=== PATIENT | female | born 1965 | race Caucasian/White ===

== ENCOUNTER 2022-10-17 15:52 | Outpatient (OUT) | payer OTHER, SELFPAY ==
[2022-10-17 16:31] LABS: Basophils Absolute Auto 0.1 10^3/uL (0.0-0.1); Basophils Percent Auto 0.6 % (0.2-2.0); Eosinophils Absolute Auto 0.1 10^3/uL (0.0-0.7); Eosinophils Percent Auto 0.8 % (0.9-7.0); Hematocrit 40.1 % (36.0-48.0); Hemoglobin 13.6 g/dL (12.0-16.0); Immature Granulocytes Abs Auto 0.03 10^3/uL (0.00-0.03); Immature Granulocytes Pct Auto 0.4 % (0.0-0.5); Lymphocytes Absolute Auto 3.2 10^3/uL (1.2-3.8); Lymphocytes Percent Auto 38.5 % (20.5-60.0); Mean Corpuscular HGB Conc 33.9 g/dL (29.9-35.2); Mean Corpuscular Hemoglobin 27.6 pg (26.7-34.0); Mean Corpuscular Volume 81.5 fL (81.0-99.0); Mean Platelet Volume 10.3 fL (9.5-13.5); Monocytes Absolute Auto 0.7 10^3/uL (0.3-0.8); Monocytes Percent Auto 8.7 % (1.7-12.0); Neutrophils Absolute Auto 4.3 10^3/uL (1.4-6.5); Platelet Count 279 10^3/uL (150-450); Red Blood Count 4.92 10^6/uL (4.20-5.40); Red Cell Distribution Width 13.8 % (11.0-15.0); White Blood Count 8.4 10^3/uL (4.0-11.0)
[2022-10-17 16:58] LABS: Alanine Aminotransferase 63 U/L (14-59); Albumin Globulin Ratio 1.1; Alkaline Phosphatase 86 U/L (46-116); Anion Gap 12.8; Aspartate Amino Transferase 31 U/L (15-37); BUN Creatinine Ratio 29.6; Bilirubin Total 0.5 mg/dL (0.2-1.0); Calcium 9.1 mg/dL (8.5-10.1); Carbon Dioxide 25.2 mmol/L (21.0-32.0); Chloride 104 mmol/L (98-107); Chol HDL Ratio 3.6; Cholesterol 140 mg/dL (<=200); Estimated GFR (African America >60 (>=60); Estimated GFR (Non-African Ame >60 (>=60); Globulin 3.6 g/dL; Glucose 91 mg/dL (74-106); HDL Cholesterol 39 mg/dL (40-60); Sodium 138 mmol/L (136-145); Total Protein 7.6 g/dL (6.4-8.2); Triglycerides 87 mg/dL (<=150); VLDL CHOLESTEROL 17.4 mg/dL
== END 2022-10-17 15:53 | disposition home or self-care (01) ==
LOC: LAB 15:57
PROVIDERS: PCP Internal Medicine; Visit Provider Internal Medicine
DX: Z00.00 Encounter for general adult medical examination without abnormal findings (principal)
CPT/HCPCS: 36415; 80053; 80061; 84443; 85025

== ENCOUNTER 2022-11-09 15:01 | Outpatient (OUT) | payer OTHER, SELFPAY ==
--- NOTE | 2022-11-09 | XR_ITS ---
The [address] [address] Patient Name: ARIK VELARDE MRN: [id number] date: 1965 Sex: F Assigned Patient Location: [facility] Current Patient Location: Accession/Order Number: [id number] Exam Date: 11/09/2022 15:00 Report Date: 11/10/2022 10:08 At the request of: PONCE NORTH Procedure: XR ankle RT min 3V PROCEDURE: XR ankle RT min 3V DATE: 11/09/2022 2:00 PM CDT COMPARISONS: Plain radiographs 07/20/2022. MRI right ankle 08/02/2022 CLINICAL INDICATION: RIGHT ANKLE PAIN FINDINGS: There is no evidence of fractures or other acute osseous abnormalities. Corticated 5 mm ossification distal to the fibula consistent with old trauma or accessory ossicle, stable. Mild tibiotalar degenerative change. 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 These findings are better visualized on MRI than on plain radiographs and are stable. There is a small spur off the posterior inferior os calcis noted on lateral view. There is spurring off the posterior os calcis at the attachment of the Achilles as well. The ankle mortise is intact. XR/XR ankle RT min 3V IMPRESSION: Stable right ankle radiographs. Electronically authenticated by: MARÍA SLADE Date: 11/10/2022 10:08
== END 2022-11-09 15:02 | disposition home or self-care (01) ==
LOC: RAD 15:03
PROVIDERS: Visit Provider Podiatrist Foot & Ankle Surgery
DX: M25.571 Pain in right ankle and joints of right foot (principal)
CPT/HCPCS: 73610

== ENCOUNTER 2022-11-10 16:03 | Outpatient (OUT) | payer OTHER, SELFPAY ==
--- NOTE | 2022-11-10 16:40 | MM_ITS ---
Patient: ARIK VELARDE Exam Date: 11/10/2022 : 1965 Gender:F Ordering : DR Tomas Pfeiffer D.O. Admission #: [id number] Family : Non-Staff Physician Order #: [id number] CLICK HERE TO VIEW EXAM RADIOLOGY REPORT PROCEDURE: MM TOMOSYNTHESIS SCREENING BI COMPARISON: [facility] MAMM SCREEN 3D GERMAINE CAD, 10/13/2020. MG MAMM SCREEN 3D GERMAINE CAD, 10/14/2021. INDICATIONS: Screening mammogram Z12.31 Calculator Name NCI Breast Cancer Risk Assessment Tool 5 Year Breast Cancer Risk 0.80% Lifetime Breast Cancer Risk 5.20% Personal Breast Cancer No Personal Ovarian Cancer No Treatments None Family Cancers None LOCATION: [facility] BREAST COMPOSITION: Scattered areas fibroglandular density. FINDINGS: DIAGNOSTIC CATEGORY 2--BENIGN FINDING. NO CHANGE FROM COMPARISON. Scattered benign-appearing calcifications are present. Scattered benign-appearing lymph nodes are present. RIGHT BREAST: No significant suspicious finding. LEFT BREAST: No significant suspicious finding. RECOMMENDATIONS: ROUTINE MAMMOGRAM AND CLINICAL EVALUATION IN 12 MONTHS. PLEASE NOTE: A NORMAL MAMMOGRAM DOES NOT EXCLUDE THE POSSIBILITY OF BREAST CANCER. A CLINICALLY SUSPICIOUS PALPABLE LUMP SHOULD BE BIOPSIED. Dictated by: Leonid Pate MD on 11/11/2022 at 07:58 Approved by: Leonid Pate MD on 11/11/2022 at 08:00
== END 2022-11-10 16:04 | disposition home or self-care (01) ==
LOC: MAMMO 16:04
PROVIDERS: Visit Provider Internal Medicine
DX: Z12.31 Encounter for screening mammogram for malignant neoplasm of breast (principal)
CPT/HCPCS: 77063; 77067

== ENCOUNTER 2022-12-28 09:27 | Outpatient (OUT) | payer OTHER, SELFPAY ==
[2022-12-28 10:25] LABS: Thyroid Stimulating Hormone 0.009 uIU/mL (0.358-3.740)
== END 2022-12-28 09:28 | disposition home or self-care (01) ==
LOC: LAB 09:27
PROVIDERS: PCP Internal Medicine; Visit Provider Internal Medicine
DX: E06.3 Autoimmune thyroiditis (principal)
CPT/HCPCS: 36415; 84443

== ENCOUNTER 2023-03-02 09:17 | Outpatient (OUT) | payer OTHER, SELFPAY ==
[2023-03-02 13:57] LABS: Thyroid Stimulating Hormone 0.015 uIU/mL (0.358-3.740)
== END 2023-03-02 09:18 | disposition home or self-care (01) ==
LOC: LAB 09:18
PROVIDERS: PCP Internal Medicine; Visit Provider Internal Medicine
DX: E06.3 Autoimmune thyroiditis (principal)
CPT/HCPCS: 36415; 84443

== ENCOUNTER 2023-04-28 09:20 | Outpatient (OUT) | payer OTHER, SELFPAY ==
[2023-04-28 10:34] LABS: Thyroid Stimulating Hormone 0.105 uIU/mL (0.358-3.740)
== END 2023-04-28 09:21 | disposition home or self-care (01) ==
LOC: LAB 09:21
PROVIDERS: PCP Internal Medicine; Visit Provider Internal Medicine
DX: E06.3 Autoimmune thyroiditis (principal)
CPT/HCPCS: 36415; 84443

== ENCOUNTER 2023-10-24 10:37 | Outpatient (OUT) | payer OTHER, SELFPAY ==
--- OUTSIDE RECORDS SUMMARY | 2023-10-24 10:39 | XMS_ITS | CCD ---
Author Organization [facility] CliniSyfl Care Team Providers Care Rn Travel Name Role Phone Aleena Garnett Unavailable MG, DR MAIER Consulting Unavailable BALL, DR MORALES Primary Care Unavailable TIMMIS, DR MAIER Attending Unavailable TIMMIS, DR MAIER Admitting Unavailable JACKIE AMES Consulting Unavailable ENZO HAWKINS Consulting Unavailable AMRIT, DR SIN Srivastava Consulting Unavailable KENTRELL, DR MORALES Primary Care Unavailable PONCE NORTH Attending Unavailable PONCE NORTH Admitting Unavailable PONCE NORTH Consulting Unavailable ELÍAS GLEN Esparza Consulting Unavailable MORGOBALJINDER Gonzales Consulting Unavailable LORENZO TRISTAN Consulting Unavailable TIMMIS, DR MAIER Consulting Unavailable BALL, DR MORALES Primary Care Unavailable TIMMIS, DR MAIER Attending Unavailable TIMMIS, DR MAIER Admitting Unavailable TIMMIS, DR MAIER Consulting Unavailable BALL, DR MORALES Primary Care Unavailable TIMMIS, DR MAIER Attending Unavailable TIMMIS, DR MAIER Admitting Unavailable PONCE NORTH Consulting Unavailable KENTRELL, DR MORALES Primary Care Unavailable PONCE NORTH Attending Unavailable PONCE NORTH Admitting Unavailable ISABELL FRASER Consulting Unavailable KENTRELL, DR MORALES Primary Care Unavailable PONCE NORTH Attending Unavailable PONCE NORTH Admitting Unavailable BALL, DR MORALES Primary Care Unavailable PANTERA BILLINGS Attending Unavailable PANTERA BILLINGS Admitting Unavailable BALL, DR MORALES Primary Care Unavailable PANTERA BILLINGS Attending Unavailable PANTERA BILLINGS Admitting Unavailable PANTERA BILLINGS Consulting Unavailable KENTRELL, DR MORALES Primary Care Unavailable PANTERA BILLINGS Attending Unavailable PANTERA BILLINGS Admitting Unavailable ANIKA LOCKWOOD Consulting Unavailable AMRIT, DR SIN Srivastava Consulting Unavailable KENTRELL, DR MORALES Primary Care Unavailable PANTERA BILLINGS Attending Unavailable PANTERA BILLINGS Admitting Unavailable PANTERA BILLINGS Consulting Unavailable PONCE NORTH Consulting Unavailable BALL, DR MORALES Primary Care Unavailable PONCE NORTH Attending Unavailable PONCE NORTH Admitting Unavailable DOUG ACEVEDO Consulting Unavailable SABINE, DR ENZO Moreira Consulting Unavailable KENTRELL, DR MORALES Primary Care Unavailable PONCE NORTH Attending Unavailable PONCE NORTH Admitting Unavailable PONCE NORTH Consulting Unavailable KENTRELL, DR MORALES Consulting Unavailable KENTRELL, DR MORALES Primary Care Unavailable KENTRELL, DR MORALES Attending Unavailable KENTRELL, DR MORALES Admitting Unavailable SABINE, DR ENZO Moreira Consulting Unavailable Tomas Pfeiffer Unavailable Asaad, Imad Unavailable Tomas Pfeiffer Primary Care Unavailable Asaad, Imad Attending Unavailable Asaad, Imad Admitting Unavailable LUCIA HOLLIDAY Attending Unavailable Medications Current Medications Medication Drug Class(es) Dates Sig (Normalized) Sig (Original) HYDROcodone (15 sources) Opioid Agonist Start: 03-24-2022 Start: 03-24-2022 levothyroxine sodium 0.175 mg oral tablet (20 sources) l-Thyroxine Start: 10-23-2023 End: 10-23-2023 take 175 ug by mouth once daily Levothyroxine Active 175 MCG PO Daily 90 90 October 23, 2023 3:19pm Start: 07-24-2023 End: 10-23-2023 Levothyroxine Discontinued 0 .ROUTE .COMPLEX 102 July 24, 2023 10:06pm October 23, 2023 2:44pm TAKE 1& 1/2 TABLETS BY MOUTH ON SUNDAYS AND 1 TABLET ON ALL REMAINING DAYS Start: 12-29-2022 take 1 tablet by avril th once daily in the morning Levothyroxine Sodium 175 MCG 1 tablet in the morning on an empty stomach Orally Once a day Dec, Active Start: 12-15-2022 End: 07-24-2023 take 1 tablet by mouth once daily in the morning Levothyroxine Sodium 175 MCG 1 tablet in the morning on an empty stomach Orally Once a day Dec, Active Start: 10-18-2021 take 0.5 tablet by m outh once daily Levothyroxine Sodium 175MCG Levothyroxine Sodium 175MCG, 1 (one) Tablet Tablet daily, except take and extra 1/2 tab on Mon and Thurs # 102, 10/18/2021, Ref. x3. Active Oral daily, except take and extra 1/2 tab on Mon and for 0 Sep, Not-Taking/PRN Start: 10-18-2021 take 0.5 tablet by m outh once daily Levothyroxine Sodium 175MCG Levothyroxine Sodium 175MCG, 1 (one) Tablet Tablet daily, except take and extra 1/2 tab on Mon and Thurs # 102, 10/18/2021, Ref. x3. Active Oral daily, except take and extra 1/2 tab on Mon and for 0 Sep, Not-Taking Levothyroxine So dium 175 MCG 1 1/2 tabs on Monday, 1 tab all the remaining days Orally Once a day Active take 1 tablet by avril th once daily in the morning Levothyroxine Sodium 175 MCG 1 tablet in the morning on an empty stomach Orally daily Active lubiprostone (1 source) Chloride Channel Activator Start: 10-23-2023 take 1 capsule by mouth once daily Lubiprostone (Amitiza) 8 mcg capsule Active 8 MCG PO Daily October 23, 2023 12:00am meclizine hydrochloride 25 mg oral tablet (20 sources) Antiemetic Start: 10-23-2023 take 25 mg by mouth once daily Meclizine Active 25 MG PO Daily 90 October 23, 2023 12:00am Start: 10-23-2023 take 25 mg by mouth every six hours Meclizine Active 25 MG PO Every 6 hours October 23, 2023 12:00am Start: 10-17-2022 take 1 tablet by avril every six hours as needed for dizziness Meclizine HCl 25 MG 1 tablet as needed Orally every 6 hours as needed for dizziness for 30 days Sep, Active Start: 09-30-2020 take 1 tablet by avril every six hours as needed Meclizine HCl 25 MG 1 tablet as needed Oral every 6 hours as needed for 0 days Sep, Active phentermine hydrochloride 37.5 mg oral tablet (16 sources) Sympathomimetic Amine Anorectic Start: 10-23-2023 take 1 tablet by mouth once daily 30 minutes after breakfast Phentermine (Adipex-P) 37.5 mg tablet Active 37.5 MG PO Daily October 23, 2023 12:00am must administer 30 minutes before or 1-2 hours after breakfast Start: 02-14-2023 take 1 tablet by avril once daily before breakfast Adipex-P 37.5 MG 1 tablet before breakfast Orally Once a day for 30 days Rx #4 Jan, Active Start: 01-16-2023 [facility] Adipex-P 37.5 MG 1 tablet before breakfast Orally Once a day for 30 days Rx #4 Dec, Active Start: 12-14-2022 [facility] before breakfast Adipex-P 37.5 MG 1 tablet before breakfast Orally Once a day for 30 days 3rd Rx Nov, Active Start: 11-16-2022 [facility] before breakfast Adipex-P 37.5 MG 1 tablet before breakfast Orally Once a day for 30 days Oct, Active Start: 10-17-2022 take 1 tablet by [facility] once daily before breakfast Adipex-P 37.5 MG 1 tablet before breakfast Orally Once a day for 30 days Sep, Active polyethylene glycol [id number] [id number] mg / potassium chloride 2970 mg / sodium bicarbonate 6740 mg / sodium chloride 5860 mg / sodium sulfate 30228 mg powder for oral solution (14 sources) Osmotic Laxative Start: 11-01-2022 take 236 g by mouth once daily Golytely 236 GM as directed Orally once daily for 1 days Oct, Active Completed/Discontinued Medications Medication Drug Class(es) Dates Sig (Normalized) Sig (Original) Albuterol (15 sources) beta2-Adrenergic Agonist Start: 04-02-2021 take 1 dose by inhalation every six hours as needed Albuterol Sulfate (2.5 MG/3ML)0.083% Albuterol Sulfate (2.5 MG/3ML)0.083%, 1 (one) Vial Vial Vial every 6 hours PRN # 25, 04/02/2021, Ref. x1. Active Inhalation every 6 hours PRN for 0 Mar, Not-Taking/PRN Start: 04-02-2021 take 1 dose by inhal ation every six hours as needed Albuterol Sulfate (2.5 MG/3ML)0.083% Albuterol Sulfate (2.5 MG/3ML)0.083%, 1 (one) Vial Vial Vial every 6 hours PRN # 25, 04/02/2021, Ref. x1. Active Inhalation every 6 hours PRN for 0 Mar, Not-Taking amoxicillin 500 mg oral capsule (16 sources) Penicillin-class Antibacterial Start: 02-19-2022 take 1 capsule by mouth every eight hours Amoxicillin 500 MG 1 capsule Orally three times a day for 10 day(s) Jan, Not-Taking/PRN meloxicam 15 mg oral tablet (16 sources) Nonsteroidal Anti-inflammatory Drug Start: 10-23-2023 End: 10-23-2023 take 15 mg by mouth once daily Meloxicam Discontinued 15 MG PO Daily October 23, 2023 12:00am October 23, 2023 2:44pm take 1 tablet by mouth once elizabeth y Meloxicam 15 MG TAKE 1 TABLET BY MOUTH EVERY DAY Oral for 30 Days Active predniSONE 20 mg oral tablet (16 sources) Start: 02-19-2022 take 1 tablet by mouth every twelve hours predniSONE 20 MG 1 tablet Orally 2 times a day for 5 day(s) Jan, Not-Taking/PRN Vitamin D (16 sources) Vitamin D Not-Ta kiran/PRN Vitamin D Not-Ta kiran Vitamin D Active Problems Active Problems Problem Classification Problem Date Documented Date Episodic/Chronic Bacterial infection; unspecified site (1 source) Other specified bacterial agents as the cause of diseases classified elsewhere Episodic Immunizations and screening for infectious disease (17 sources) Contact with and (suspected) exposure to other viral communicable diseases; Translations: [Contact with and (suspected) exposure to other viral communicable diseases] Episodic Joint disorders and dislocations; trauma-related (20 sources) Internal derangement of left knee; Translations: [Unspecified internal derangement of left knee] Chronic Osteoarthritis (3 sources) Primary osteoarthritis, right ankle and foot; Translations: [Bilateral arthritis of ankle] Onset: 01-19-2022 10-22-2023 Chronic Other acquired deformities (1 source) Contracture, right ankle; Translations: [CONTRACTURE RIGHT ANKLE] Onset: 01-19-2022 Chronic Other congenital anomalies (1 source) Other specified congenital deformities of feet; Translations: [OTH SPEC CONGEN DEFORMITIES FEET] Onset: 01-19-2022 Chronic Other connective tissue disease (4 sources) Peroneal tendinitis, right leg; Translations: [PERONEAL TENDINITIS RIGHT LEG] Onset: 08-02-2022 Episodic Other ear and sense organ disorders (16 sources) Sensorineural hearing loss, bilateral; Translations: [Sensorineural hearing loss, bilateral] Chronic Other endocrine disorders (1 source) Polycystic ovarian syndrome; Translations: [POLYCYSTIC OVARIAN SYNDROME] Onset: 09-02-2021 Chronic Other non-traumatic joint disorders (5 sources) Other instability, right ankle; Translations: [OTHER INSTABILITY RIGHT ANKLE] Onset: 09-01-2021 Episodic Other non-traumatic joint disorders (5 sources) Pain in right ankle and joints of right foot; Translations: [PAIN IN RIGHT ANKLE] Onset: 01-19-2022 Episodic Other nutritional; endocrine; and metabolic disorders (5 sources) Other obesity due to excess calories; Translations: [OTHER OBESITY D/T EXCESS CALORIES] Onset: 01-19-2022 Chronic Other nutritional; endocrine; and metabolic disorders (3 sources) Body mass index (BMI) 30.0-30.9, adult; Translations: [BODY MASS INDEX BMI 30.0-30.9 ADULT] Onset: 01-19-2022 Chronic Other nutritional; endocrine; and metabolic disorders (15 sources) Obesity caused by energy imbalance; Translations: [Other obesity due to excess calories] Chronic Other nutritional; endocrine; and metabolic disorders (20 sources) Body mass index 30+ - obesity; Translations: [Body mass index (BMI) 32.0-32.9, adult] Chronic Other nutritional; endocrine; and metabolic disorders (1 source) Overweight; Translations: [Overweight] 10-23-2023 Episodic Other screening for suspected conditions (not mental disorders or infectious disease) (20 sources) Encounter for screening mammogram for malignant neoplasm of breast; Translations: [Patient encounter status] Onset: 10-14-2021 Episodic Other upper respiratory infections (2 sources) Streptococcal sore throat; Translations: [Strep throat] Episodic Residual codes; unclassified (1 source) Other specified postprocedural states; Translations: [OTH SPECIFIED POSTPROCEDURAL STATES] Onset: 05-17-2022 Episodic Spondylosis; intervertebral disc disorders; other back problems (1 source) Spondylosis without myelopathy or radiculopathy, lumbar region; Translations: [SPONDYLS W/O MYELO-/RADICULOP LUMB] Onset: 01-19-2022 Chronic Sprains and strains (10 sources) Strain of muscle(s) and tendon(s) of peroneal muscle group at lower leg level, right leg, sequela; Translations: [Sprain of other ligament of right ankle, sequela] Onset: 12-25-2021 Episodic Thyroid disorders (20 sources) Autoimmune thyroiditis; Translations: [Hypothyroidism, unspecified] Onset: 09-02-2021 Chronic Unclassified (1 source) CONTACT W/AND (SUSP) EXPOS COVID-19; Translations: [CONTACT W/AND (SUSP) EXPOS COVID-19] Onset: 01-03-2022 Unclassified (1 source) PERSONAL HISTORY OF COVID-19; Translations: [PERSONAL HISTORY OF COVID-19] Onset: 09-02-2021 Unclassified (1 source) Encounter for screening for malignant neoplasm of colon; Translations: [Encounter for screening for malignant neoplasm of colon] Onset: 12-16-2022 Past or Other Problems Problem Classification Problem Date Documented Da te Episodic/Chronic Fracture of lower limb (1 source) Other fracture of right lower leg, sequela; Translations: [OTHER FRACTURE RT LOWER LEG SEQUELA] Onset: 01-19-2022 Episodic Other aftercare (1 source) Other jail (current) drug therapy; Translations: [OTH BIBLE READER CURRENT DRUG THERAPY] Onset: 09-02-2021 Episodic Other connective tissue disease (1 source) Pain in right foot; Translations: [PAIN IN RIGHT FOOT] Onset: 01-19-2022 Episodic Other connective tissue disease (1 source) Plantar fascial fibromatosis; Translations: [PLANTAR FASCIAL FIBROMATOSIS] Onset: 01-19-2022 Episodic Other ear and sense organ disorders (1 source) Other specified disorders of ear, bilateral; Translations: [OTHER SPECIFIED DISORDERS EAR GERMAINE] Onset: 09-02-2021 Episodic Other ear and sense organ disorders (1 source) Otalgia, bilateral; Translations: [OTALGIA BILATERAL] Onset: 09-02-2021 Episodic Other non-traumatic joint disorders (1 source) Other specified joint disorders, right ankle and foot; Translations: [OTHER SPEC JOINT D/O RT ANKLE FOOT] Onset: 01-19-2022 Episodic Otitis media and related conditions (5 sources) Other specified disorders of Eustachian tube, bilateral; Translations: [OTH SPEC D/O EUST TUBE BILATERAL] Onset: 08-25-2021 Episodic Residual codes; unclassified (1 source) Acquired absence of both cervix and uterus; Translations: [ACQUIRED ABSENCE BOTH CERVIX AND UTERUS] Onset: 01-19-2022 Episodic Results Test Name Value Interpretation Reference Range Facility [facility] 12-16-2022 L Specimen: [id number] Received: 12/16/22 Status: EVELIO Vilchis Num: [id number] Spec Type: Surgical Subm Dr: Imelda Rodriguez MD Tissues: A Colon Biopsy (SIGMOID POLYP) B Colon Biopsy (RECTAL POLYP) Procedures: Clementina MEJIA/Terence L4/2 Age/ Patient Sex Location Account Attending Physician Lisa Campuzano 57/F [id number] Imelda Rodriguez MD SPEC NUM: [id number] RECD: 12/16/22 STATUS: EVELIO VILCHIS NUM: [id number] DANA: 12/16/22- [facility] DR: Imelda Rodriguez MD ENTERED: 12/16/[address] [facility] [address]: SPEC TYPE: Surgical DEPT: S ORDERED: HE/4, Gross/Micro L4/2 ORDERED: HE/4, Gross/Micro L4/2 Pathological Diagnosis A. Sigmoid polyp biopsy: - Small benign lymphoid pseudopolyp, also with mildly associated hyperplastic reactive glandular elongations without glandular dysplasia B. Rectal polyp biopsy: - Serrated hyperplastic polyp in both fragments Clinical Information Screening Gross Description A. Received in formalin labeled with the patient's name, date of and sigmoid polyp is one rodriguez tissue measuring 0.4 x 0.2 x 0.2 cm. Entirely submitted in one cassette labeled A1. B. Received in formalin labeled with the patient's name, date of and rectal polyp are two rodriguez tissues measuring 0.2 x 0.1 x 0.1 cm and 0.3 x 0.3 x 0.1 cm. Entirely submitted in one cassette labeled B1. Specimen: [id number] Received: 12/16/22 Status: CLAUDIAPatrick Vilchis Num: [id number] Spec Type: Surgical Subm Dr: Imelda Rodriguez MD Tissues: A Colon Biopsy (SIGMOID POLYP) B Colon Biopsy (RECTAL POLYP) Procedures: HE/4, Gross/Micro L4/2 Patient: Lisa Campuzano [id number] (Continued) Specimen: [id number] Received: 12/16/22 (Continued) Signed (signature on file) ChinPhyllis Chowdhury MD 12/19/221321 Specimen: [id number] Received: 12/16/22 Status: EVELIO Vilchis Num: [id number] Spec Type: Surgical Subm Dr: Imelda Rodriguez MD Tissues: A Colon Biopsy (SIGMOID POLYP) B Colon Biopsy (RECTAL POLYP) Procedures: RABIA/Clementina Santo/Terence L4/2 Patient: JustenLisa [id number] (Continued) Specimen: [id number] Received: 12/16/22 (Continued) Microscopic Description A. Two H E slides reviewed. The microscopic examination confirms the diagnosis. B. Two H E slides reviewed. The microscopic examination confirms the diagnosis. CPT Codes 41093i4 Specimen: [id number] Received: 12/16/22 Status: EVELIO Vilchis Num: [id number] Spec Type: Surgical Subm Dr: Imelda Rodriguez MD Tissues: A Colon Biopsy (SIGMOID POLYP) B Colon Biopsy (RECTAL POLYP) Procedures: HE/4, Gross/Micro L4/2 Patient: Lisa Campuzano [id number] (Continued) Signed (signature on file) Ayla Chowdhury MD 12/19/22 1322 [facility] MRI ANKLE RT WO CONon 2022 MRI ANKLE RT WO CON HISTORY: Right ankle pain and pain along the dorsum of the right foot. The patient has a history of prior surgery on the right ankle. Evaluate for peroneal tendinitis. Instability of the right ankle. MRI ANKLE RT WO CON: 08/02/2022 3:36 PM EDT COMPARISON: MRI right ankle 09/01/2021 and radiographs right ankle 07/20/2022. TECHNIQUE: Multiplanar, multisequence MRI images of the ankle were obtained without contrast. FINDINGS: LIGAMENTS: There are soft tissue anchors now seen in the anteroinferior aspect of the lateral malleolus and there are multiple small susceptibility artifacts seen in the soft tissues along the anterolateral aspect of this region from interval surgery. There again appears to be thickening and low signal intensity of the anterior talofibular ligament. There is thickening and low signal intensity on the T2 images involving the superior peroneal retinaculum. The calcaneofibular ligament, posterior talofibular ligament, and distal tibiofibular ligaments appear within normal limits. The deltoid ligament complex appears within normal limits. TENDONS: An accessory peroneus quartus muscle and tendon are again seen. There again appears to be mild tendinopathy of the retromalleolar and inframalleolar portion of the peroneus longus tendon with mild thickening of the tendon again seen. The longitudinal split tear previously seen of the peroneus brevis tendon in the inframalleolar region is no longer seen. The other tendons of the ankle appear within normal limits. SINUS TARSI AND TARSAL TUNNEL: Since the prior MRI there has been development of intermediate T1 and increased STIR signal intensity replacing the fat within the sinus tarsi. No space-occupying mass is seen in the tarsal tunnel. BONES AND JOINTS: The bone marrow signal intensity is age appropriate. No unstable osteochondral defect of the tibiotalar joint is identified. A small well-corticated ovoid 5 mm ossific focus is again seen along the inferior aspect of the lateral malleolus. There again appear to be mild degenerative changes of the tibiotalar joint with small marginal osteophytes. There is a similar appearance of a focal area of mild to moderate cartilage thinning involving the medial talar dome with mild underlying subchondral bone marrow edema in this region. There appear to be probable postsurgical changes from interval partial resection of the dorsolateral aspect of the calcaneus in the region of the sinus tarsi. PLANTAR FASCIA: There is a plantar calcaneal enthesophyte again seen. Approximately 2 cm distal to the attachment of the central band of the plantar fascia to the calcaneus there has been development of a focal area of severe fusiform thickening and intermediate signal intensity involving the central band of the plantar fascia. This measures 2.5 cm in length and the plantar fascia in this region is thickened to 8 mm. Approximately 2 cm distal to this region there is also a new focal area of moderate fusiform thickening and intermediate signal intensity of the central band of the plantar fascia at the level of the first tarsometatarsal joint. This measures partially 2 cm in length. SOFT TISSUES: No significant soft tissue swelling is seen. IMPRESSION: 1. Since the prior MRI of the right ankle of 09/01/2021 there appears to have been interval partial resection of the dorsolateral aspect of the anterior calcaneus in the region of the sinus tarsi and there has been development of abnormal signal intensity replacing the fat within the sinus tarsi which is probably secondary to postsurgical scarring or less likely a synovitis in this region. Correlation as to possible signs and symptoms of sinus tarsi syndrome is recommended. 2. There appear to be postsurgical changes from interval reconstruction surgery of the anterior talofibular ligament and interval surgery in the region of the superior peroneal retinaculum with probable scarring in the region of the superior peroneal retinaculum. No ligament injury is seen. 3. Probable interval repair of the previously seen longitudinal split tear of the inframalleolar portion of the peroneus brevis tendon. No recurrent tear of the tendon is seen. There again appears to be mild tendinopathy of the peroneus longus tendon. 4. Since the prior MRI there has been development of 2 separate areas of abnormal fusiform thickening and intermediate signal intensity involving the central band of the plantar fascia as described above. Differential diagnostic considerations for these findings primarily include areas of plantar fasciitis or strains of the plantar fascia or less likely plantar fibromas. 5. There again appear to be mild degenerative changes of the tibiotalar joint with a stable appearance of a remote moderate grade osteochondral defect of the medial talar dome which does not appear unstable. Electronically authenticated by: DOUG ACEVEDO Date: 2022-08-03 12: (more content not included)... Normal [facility] COVID/FLU RT-PCRon SARS-CoV-2 (COVID-19) RNA LISBETH+probe Ql (Unsp spec) Negative [employer] Other COVID/FLU RT-PCR Negative [facility] [employer] Other Quick Strepon 02-19-2022 S. pyogenes Org specific cx Ql (Throat) Negative [facility] Other Quick Strep [facility] Other POINT OF CARE GLUCOSEon 12-25 Glucose [Mass/Vol] 103 mg/dL Normal 74-106 [facility] Comment on above: Performed By: #### P OCGLUC ####[facility] [id number] [place] [id number] Chowdhury Glucose [Mass/Vol] 85 mg/dL Normal 74-106 [facility] Comment on above: Performed By: #### P OCGLUC ####[facility] [id number] [place] [address]Dr. Sade Chowdhury XR ANKLE RT 2Von 01-03-2022 XR ANKLE RT 2V EXAM: XR ANKLE RT 2V HISTORY: Pain COMPARISON: None. TECHNIQUE: 5 fluoroscopic images FINDINGS: 5 fluoroscopic images demonstrate a surgical metallic pointer projected over the hindfoot IMPRESSION: Fluoroscopic images of the hindfoot Electronically authenticated by: SIN MARCUS Date: 2022-01-03 16:06 Normal [facility] Covid-19 PCR (CVDTB)on SARS-CoV-2 (COVID-19) RNA LISBETH+probe Ql (Unsp spec) Not detected Normal NOT DETECTED [facility] Comment on above: Result Comment: This test is not yet approved or cleared by the [place] FDA. When there are no FDA-approved or cleared tests available, and other criteria are met, FDA can make tests available under an emergency access mechanism called an Emergency Use Authorization (EUA). The EUA for this test is supported by the [place] of Health and Human Service's (HHS's) declaration that circumstances exist to justify the emergency use of in vitro diagnostics for the detection and/or diagnosis of the virus that causes COVID-19. This EUA will remain in effect (meaning this test can be used) for the duration of the COVID-19 declaration justifying emergency of IVDs, unless it is terminated or revoked by FDA (after which the test may no longer be used). When diagnostic testing is negative, the possibility of a false negative should be considered in the context of a patient's recent exposures and the presence of clinical signs and symptoms consistent with SARS-CoV-2. Performed By: #### C VDTBH ####[facility] [address] [place], [place] [address]Dr. Sade Chowdhury CBC AUTO DIFFon 10-14-2021 BASO # 0.0 103/ul Normal 0.0-0.1 [facility] Comment on above: Performed By: #### C BC ####[facility] [address] [place], [place] [address]Dr. Sade Chowdhury Basophils/100 WBC (Bld) 0.5 % Normal 0.2-2.0 [facility] Comment on above: Performed By: #### C BC ####[facility] [address] [place], [place] [address]DrVilma Chowdhury EO # 0.0 103/ul Normal 0.0-0.7 [facility] Comment on above: Performed By: #### C BC ####[facility] [address] [place], [place] [address]Dr. Sade Chowdhury Eosinophils/100 WBC (Bld) 0.4 % Critically low 0.9-7.0 [facility] [place] Comment on above: Performed By: #### C BC ####[facility] [address] [address]Dr. Sade Chowdhury Erythrocyte distribution width (RBC) [Ratio] 13.6 % Normal 11.0-15.0 [facility] [place] Comment on above: Performed By: #### C BC ####[facility] [address]es[address] [place], [place] [address]Dr. Sade Chowdhury Hematocrit (Bld) [Volume fraction] 39.6 % Normal 36.0-48.0 [facility] Comment on above: Performed By: #### C BC ####[facility] [address] [place], [place] [address]Dr. Sade Chowdhury Hemoglobin (Bld) [Mass/Vol] 13.2 g/dL Normal 12.0-16.0 [facility] Comment on above: Performed By: #### C BC ####[facility] C[address] [place], [place] [address]Dr. Sade Trenton IG # 0.03 10e3/ul Normal 0.00-0.03 [facility] Comment on above: Performed By: #### C BC ####[facility] [address] [place], [place] [address]Dr. Sade Trenton IG % 0.4 % Normal 0.0-0.5 [facility] Comment on above: Performed By: #### C BC ####[facility] [address] [place], [place] [address]Dr. Sade Trenton LYMPH # 2.9 103/ul Normal 1.2-3.8 [facility] Comment on above: Performed By: #### C BC ####[facility] [address] [place], [place] [address]Dr. Jessicalex Chowdhury Lymphocytes/100 WBC (Bld) 39.6 % Normal 20.5-60.0 [facility] Comment on above: Performed By: #### C BC ####[facility] Crlevskrvk[address] [place], [place] [address]Dr. Sade Chowdhury MANUAL DIFF REQ NO Normal [facility] Comment on above: Performed By: #### C BC ####[facility] [address] [address]Dr. Sade Chowdhury MCH (RBC) [Entitic mass] 28.4 pg Normal 26.7-34.0 [facility] [place] Comment on above: Performed By: #### C BC ####[facility] [address] [address]Dr. Sade Chowdhury MCHC (RBC) [Mass/Vol] 33.3 g/dL Normal 29.9-35.2 [facility] [place] Comment on above: Performed By: #### C BC ####[facility] [address] [address]DrVilma Chowdhury MCV (RBC) [Entitic vol] 85.3 fL Normal 81.0-99.0 [facility] [place] Comment on above: Performed By: #### C BC ####[facility] R[address] [place], [place] [address]DrVilma Chowdhury MONO # 0.7 103/ul Normal 0.3-0.8 [facility] Comment on above: Performed By: #### C BC ####[facility] [address] [place], [place] [address]DrVilma Chowdhury Monocytes/100 WBC (Bld) 9.5 % Normal 1.7-12.0 [facility] Comment on above: Performed By: #### C BC ####[facility] [address] [place], [place] [address]DrVilma Chowdhury NEUT # 3.6 103/ul Normal 1.4-6.5 [facility] Comment on above: Performed By: #### C BC ####[facility] [address] [place], [place] [address]DrVilma Chowdhury Neutrophils/100 WBC (Bld) 49.6 % Normal 43.0-75.0 [facility] Comment on above: Performed By: #### C BC ####[facility] X[address] [place], [place] [address]DrVilma Chowdhury Platelet mean volume (Bld) [Entitic vol] 10.3 fL Normal 9.5-13.5 [facility] [place] Comment on above: Performed By: #### C BC ####[facility] [address] [place] [id number]. Jessicalex Chowdhury PLT 270 103/ul Normal 150-450 [facility] Comment on above: Performed By: #### C BC ####[facility] [address] [place] [id number]. Sade Chowdhury RBC 4.64 106/ul Normal 4.20-5.40 [facility] Comment on above: Performed By: #### C BC ####[facility] [address] [place] [id number]. Jessicalex Trenton WBC 7.3 103/ul Normal 4.0-11.0 [facility] Comment on above: Performed By: #### C BC ####[facility] [address] [address]Dr. Sade Chowdhury LIPID PROFILEon 10-14-2021 CHOL-HDL RATIO NORM SEE BELOW Normal [facility] [place] Comment on above: Result Comment: 3.3 - 4.4 LOW RISK 4.4 - 7.1 AVERAGE RISK 7.1 - 11.0 MODERATE RISK >11.0 HIGH RISK Performed By: #### T SH, LIPID, CMP #### [facility] [address] [place] [address] Dr. Sade Chowdhury Cholesterol [Mass/Vol] 150 mg/dL Normal <=200 [facility] Comment on above: Performed By: #### T SH, LIPID, CMP #### [facility] [address] [place] [address] Dr. Sade Chowdhury Cholesterol in HDL [Mass/Vol] 33 mg/dL Critically low 40-60 [facility] Comment on above: Performed By: #### T SH, LIPID, CMP #### [facility] [address] [place] [address] Dr. Sade Chowdhuyr Cholesterol in LDL [Mass/Vol] 98.4 mg/dL Normal [facility] Comment on above: Performed By: #### T SH, LIPID, CMP #### [facility] [address] [address] [address] Sade Chowdhury Cholesterol.total/ Cholesterol in HDL [Mass ratio] 4.5 {ratio} Normal [facility] Comment on above: Performed By: #### T SH, LIPID, CMP #### [facility] [address] [address] [address] Sade Chowdhury HDL NORMAL > or = 60 mg/dl - LOW CARDIOVASCULAR RISK <40 mg/dl - HIGH CARDIOVASCULAR RISK Normal [facility] [place] Comment on above: Performed By: #### T SH, LIPID, CMP #### [facility] [address] [address] [address] Sade Chowdhury LDL CALC NORMAL SEE BELOW Normal [facility] Comment on above: Result Comment: <100 mg/dl OPTIMAL 100 - 129 mg/dl NEAR OR ABOVE OPTIMAL 130 - 159 mg/dl BORDERLINE HIGH 160 - 189 mg/dl HIGH >190 mg/dl VERY HIGH Performed By: #### T SH, LIPID, CMP #### [facility] [address] [address] [address] Sade Chowdhury Triglyceride [Mass/Vol] 93 mg/dL Normal <=150 [facility] [place] Comment on above: Performed By: #### T SH, LIPID, CMP #### [facility] [address] [address] [address] Sade Chowdhury VLDL CALC 18.6 mg/dL Normal [facility] [place] Comment on above: Performed By: #### T SH, LIPID, CMP #### [facility] [address] [address] [address] Sade Chowdhury MG MAMM SCREEN 3D GERMAINE CADon 10-14-2021 MG MAMM SCREEN 3D GERMAINE CAD Patient: LISA CAMPUZANO Exam Date: 10/14/2021 : 1965 Gender:F Ordering : DR TOMAS PFEIFFER D.O. Admission #: [id number] Family : Order #: [id number] CLICK HERE TO VIEW EXAM RADIOLOGY REPORT PROCEDURE: MAMMOGRAM SCREENING 3D BILATERAL CAD COMPARISON: MG MAMM SCREEN 3D GERMAINE CAD, 10/13/2020. MG MAMM SCREEN GERMAINE W CAD, 10/10/2019. INDICATIONS: Screening mammography Calculator Name NCI Breast Cancer Risk Assessment Tool 5 Year Breast Cancer Risk 0.80% Lifetime Breast Cancer Risk 5.30% Personal Breast Cancer No Personal Ovarian Cancer No Treatments None Family Cancers None LOCATION: [facility] BREAST COMPOSITION: Scattered areas fibroglandular density. FINDINGS: DIAGNOSTIC CATEGORY 2--BENIGN FINDING: RIGHT BREAST: No significant suspicious finding. Scattered benign-appearing calcifications are present. No significant change has occurred. LEFT BREAST: No significant suspicious finding. Scattered benign-appearing calcifications are present. No significant change has occurred. RECOMMENDATIONS: ROUTINE MAMMOGRAM AND CLINICAL EVALUATION IN 12 MONTHS. PLEASE NOTE: A NORMAL MAMMOGRAM DOES NOT EXCLUDE THE POSSIBILITY OF BREAST CANCER. A CLINICALLY SUSPICIOUS PALPABLE LUMP SHOULD BE BIOPSIED. Dictated by: Enzo Leyva M.D. on 10/15/2021 at 11:40 Approved by: Enzo Leyva M.D. on 10/15/2021 at 11:47 Normal [facility] PROF 14(COMP METB)on 022 Albumin [Mass/Vol] 3.5 g/dL Normal 3.4-5.0 [facility] Comment on above: Performed By: #### T SH, LIPID, CMP #### [facility] [address] [place] [address] Dr. Sade Chowdhury Albumin/Globulin [Mass ratio] 1.0 {ratio} Normal [facility] Comment on above: Performed By: #### T SH, LIPID, CMP #### [facility] [address] [place] [address] Dr. Sade Chowdhury ALP [Catalytic activity/Vol] 90 U/L Normal 46-116 [facility] Comment on above: Performed By: #### T SH, LIPID, CMP #### [facility] [address] [address] [address] Sade Chowdhury ALT [Catalytic activity/Vol] 45 U/L Normal 14-59 [facility] Comment on above: Performed By: #### T SH, LIPID, CMP #### [facility] [address] [place] [address] Dr. Sade Chowdhury Anion gap [Moles/Vol] 13.6 mmol/L Normal [facility] Comment on above: Performed By: #### T SH, LIPID, CMP #### [facility] [address] [address] [address] Sade Chowdhury AST [Catalytic activity/Vol] 26 U/L Normal 15-37 [facility] Comment on above: Performed By: #### T SH, LIPID, CMP #### [facility] [address] [address] [address] Sade Chowdhury Bilirubin [Mass/Vol] 0.3 mg/dL Normal 0.2-1.0 [facility] Comment on above: Performed By: #### T SH, LIPID, CMP #### [facility] [address] [address] [address] Sade Chowdhury Calcium [Mass/Vol] 8.9 mg/dL Normal 8.5-10.1 [facility] Comment on above: Performed By: #### T SH, LIPID, CMP #### [facility] [address] [place] [address] Dr. Sade Chowdhury Chloride [Moles/Vol] 106 mmol/L Normal 98-107 [facility] Comment on above: Performed By: #### T SH, LIPID, CMP #### [facility] [address] [address] [address] Sade Chowdhury CO2 [Moles/Vol] 23.9 mmol/L Normal 21.0-32.0 [facility] Comment on above: Performed By: #### T SH, LIPID, CMP #### [facility] [address] [address] [address] Sade Chowdhury Creatinine [Mass/Vol] 0.67 mg/dL Normal 0.55-1.02 [facility] Comment on above: Performed By: #### T SH, LIPID, CMP #### [facility] [address] [address] [address] Sade Chowdhury EGFR-AF CZECH >60 Normal >=60 [facility] Comment on above: Performed By: #### T SH, LIPID, CMP #### [facility] [address] [place] [address] Dr. Sade Chowdhury EGFR-NON AF CZECH >60 Normal >=60 [facility] Comment on above: Performed By: #### T SH, LIPID, CMP #### [facility] [address] [address] [address] Sade Chowdhury Globulin (S) [Mass/Vol] 3.5 g/dL Normal [facility] Comment on above: Performed By: #### T SH, LIPID, CMP #### [facility] [address] [address] [address] Sade Chowdhury Glucose [Mass/Vol] 101 mg/dL Normal 74-106 [facility] Comment on above: Performed By: #### T SH, LIPID, CMP #### [facility] [address] [place] [address] Dr. Sade Chowdhury Potassium [Moles/Vol] 4.5 mmol/L Normal 3.5-5.1 [facility] Comment on above: Performed By: #### T JOVANY, LIPID, CMP #### [facility] [address] [place] [address] Dr. Sade Chowdhury Protein [Mass/Vol] 7.0 g/dL Normal 6.4-8.2 [facility] Comment on above: Performed By: #### T JOVANY, LIPID, CMP #### [facility] [address] [place] [address] Dr. Sade Chowdhury Sodium [Moles/Vol] 139 mmol/L Normal 136-145 [facility] Comment on above: Performed By: #### T JOVANY, LIPID, CMP #### [facility] [address] [place] [address] Dr. Sade Chowdhury Urea nitrogen [Mass/Vol] 19.0 mg/dL Critically high 7.0-18.0 [facility] Comment on above: Performed By: #### T SH, LIPID, CMP #### [facility] [address] [place] [address] Dr. Sade Chowdhury Urea nitrogen/Creatinin e [Mass ratio] 28.4 mg/mg Normal [facility] Comment on above: Performed By: #### T SH, LIPID, CMP #### [facility] [address] [place] [address] Dr. Sade Chowdhury TSHon 10-14-2021 TSH 4.514 uIU/mL Critically high 0.358-3.740 [facility] Comment on above: Performed By: #### T SH, LIPID, CMP #### [facility] [address] [place], [place] [id number] Dr. Sade Chowdhury MRI ANKLE RT WO CONon 2021 MRI ANKLE RT WO CON EXAM: MRI ANKLE RT WO CON REASON FOR EXAM: Instability of joint of right ankle. TECHNIQUE: Multiplanar, multisequence imaging of the right ankle was performed without contrast COMPARISON: Plain radiograph 08/24/2021. FINDINGS: The Achilles tendon demonstrates normal thickness and signal without tendinosis or tear. The plantar fascia is intact without tear. Laterally, there is thickening and intermediate signal involving the peroneal tendons consistent with tendinosis. There is longitudinal split tear involving the retromalleolar and inframalleolar peroneus brevis tendon. No evidence of complete rupture identified. The superficial peroneal retinaculum is intact. There is thickening and intermediate signal involving the anterior talofibular, calcaneofibular and anterior syndesmotic ligament consistent with prior lateral ligamentous injury. No acute lateral ligamentous injury identified. Medially, the medial flexor tendons demonstrate normal thickness and signal without tendinosis or tear. The deep deltoid ligament is intact. The visualized spring ligament is intact. The Lisfranc ligament is not included in the imaging. Anteriorly, the anterior extensor tendons demonstrate normal thickness and signal without tendinosis or tear. The bone marrow signal is without fracture or osteonecrosis. There is high-grade chondrosis of mild subchondral marrow edema involving the medial talar dome. No evidence of an osteochondral defect. The subtalar joints congruent. The sinus tarsi is mildly edematous. The midfoot appears congruent with mild to moderate osteoarthritis. The plantar musculature demonstrates normal bulk and signal. The visualized soft tissues are without discrete abnormality. IMPRESSION: 1. Peroneal tendinosis with short segment longitudinal split tearing involving the malleoli are inframalleolar peroneus brevis tendon at the level the peroneal tubercle. 2. Sequela of lateral ligamentous injury. 3. 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 Electronically authenticated by: ANIKA LOCKWOOD Date: 2021-09-02 14:30 Normal [facility] CBC AUTO DIFFon 08-19-2021 BASO # 0.1 103/ul Normal 0.0-0.1 [facility] Comment on above: Performed By: #### C BC #### [facility] [address] [address] [address] Sade Chowdhury Basophils/100 WBC (Bld) 0.6 % Normal 0.2-2.0 [facility] Comment on above: Performed By: #### C BC #### [facility] [address] [place] [address] Dr. Sade Chowdhury EO # 0.0 103/ul Normal 0.0-0.7 [facility] Comment on above: Performed By: #### C BC #### [facility] [address] [place] [address] Dr. Sade Chowdhury Eosinophils/100 WBC (Bld) 0.4 % Critically low 0.9-7.0 [facility] Comment on above: Performed By: #### C BC #### [facility] [address] [place] [address] Dr. Sade Chowdhury Erythrocyte distribution width (RBC) [Ratio] 13.8 % Normal 11.0-15.0 [facility] Comment on above: Performed By: #### C BC #### [facility] [address] [place] [address] Dr. Sade Chowdhury Hematocrit (Bld) [Volume fraction] 41.3 % Normal 36.0-48.0 [facility] Comment on above: Performed By: #### C BC #### [facility] [address] [place] [address] Dr. Sade Chowdhury Hemoglobin (Bld) [Mass/Vol] 13.3 g/dL Normal 12.0-16.0 [facility] Comment on above: Performed By: #### C BC #### [facility] [address] [place] [address] Dr. aSde Chowdhury IG # 0.03 10e3/ul Normal 0.00-0.03 [facility] Comment on above: Performed By: #### C BC #### [facility] [address] [place] [address] Dr. Sade Chowdhury IG % 0.4 % Normal 0.0-0.5 [facility] Comment on above: Performed By: #### C BC #### [facility] [address] [place] [address] Dr. Sade Chowdhury LYMPH # 3.1 103/ul Normal 1.2-3.8 [facility] Comment on above: Performed By: #### C BC #### [facility] [address] [place] [address] Dr. Sade Chowdhury Lymphocytes/100 WBC (Bld) 38.9 % Normal 20.5-60.0 [facility] Comment on above: Performed By: #### C BC #### [facility] [address] [place] [address] Dr. Sade Chowdhury MANUAL DIFF REQ NO Normal [facility] Comment on above: Performed By: #### C BC #### [facility] [address] [place] [address] Dr. Sade Chowdhury MCH (RBC) [Entitic mass] 28.1 pg Normal 26.7-34.0 [facility] Comment on above: Performed By: #### C BC #### [facility] [address] [place] [address] Dr. Sade Chowdhury MCHC (RBC) [Mass/Vol] 32.2 g/dL Normal 29.9-35.2 [facility] Comment on above: Performed By: #### C BC #### [facility] [address] [place] [address] Dr. Sade Chowdhury MCV (RBC) [Entitic vol] 87.3 fL Normal 81.0-99.0 [facility] Comment on above: Performed By: #### C BC #### [facility] [address] [place] [address] Dr. Sade Chowdhury MONO # 0.8 103/ul Normal 0.3-0.8 [facility] Comment on above: Performed By: #### C BC #### [facility] [address] [place] [address] Dr. Sade Chowdhury Monocytes/100 WBC (Bld) 9.4 % Normal 1.7-12.0 [facility] Comment on above: Performed By: #### C BC #### [facility] [address] [place] [address] Dr. Sade Chowdhury NEUT # 4.0 103/ul Normal 1.4-6.5 [facility] Comment on above: Performed By: #### C BC #### [facility] [address] [place] [address] Dr. Sade Chowdhury Neutrophils/100 WBC (Bld) 50.3 % Normal 43.0-75.0 [facility] Comment on above: Performed By: #### C BC #### [facility] [address] [place] [address] Dr. Sade Chowdhury Platelet mean volume (Bld) [Entitic vol] 9.8 fL Normal 9.5-13.5 [facility] Comment on above: Performed By: #### C BC #### [facility] [address] [place] [address] Dr. Sade Chowdhury PLT 309 103/ul Normal 150-450 [facility] Comment on above: Performed By: #### C BC #### [facility] [address] [place] [address] Dr. Sade Chowdhury RBC 4.73 106/ul Normal 4.20-5.40 [facility] Comment on above: Performed By: #### C BC #### [facility] [address] [place] [address] Dr. Sade Chowdhury WBC 7.9 103/ul Normal 4.0-11.0 [facility] Comment on above: Performed By: #### C BC #### [facility] [address] [place] [address] Dr. Sade Chowdhury Vital Signs Date Time Vital Sign Value Performing Clinician Facility 10-23-2023 14:45-0400 Body height 160.02 cm [facility] 10-23-2023 14:45-0400 Body mass index (BMI) [Ratio] 29.1 kg/m2 [facility] 10-23-2023 14:45-0400 Body weight 74.61 kg [facility] 10-23-2023 14:45-0400 Diastolic blood pressure 64 mm[Hg] [facility] 10-23-2023 14:45-0400 Heart rate 64 /min [facility] 10-23-2023 14:45-0400 Respiratory rate 12 /min [facility] 10-23-2023 14:45-0400 Systolic blood pressure 99 mm[Hg] [facility] 02-14-2023 13:11-0500 Body height 160.02 cm Tomas Ball Other [facility] [employer] Other 02-14-2023 13:11-0500 Body mass index (BMI) [Ratio] 27.06 kg/m2 Tomas Ball Other [facility] [employer] Other 02-14-2023 13:11-0500 Body weight 69.31 kg Tomas Ball Other [facility] [employer] Other 02-14-2023 13:11-0500 Diastolic blood pressure 75 mm[Hg] Tomas Ball Other [facility] [employer] Other 02-14-2023 13:11-0500 Systolic blood pressure 117 mm[Hg] Tomas Ball Other [employer] Other 01-16-2023 14:24-0400 Body height 160.02 cm Tomas Ball Other [employer] Other 01-16-2023 14:24-0400 Body mass index (BMI) [Ratio] 28.2 kg/m2 Tomas Ball Other [employer] Other 01-16-2023 14:24-0400 Body weight 72.21 kg Tomas Ball Other [place] [facility] Other 01-16-2023 14:24-0400 Diastolic blood pressure 70 mm[Hg] Tomas Ball Other [employer] Other 01-16-2023 14:24-0400 Respiratory rate 12 /min Tomas Ball Other [employer] Other 01-16-2023 14:24-0400 Systolic blood pressure 112 mm[Hg] Tomas Ball Other [employer] Other 12-14-2022 14:45-0400 Body height 160.02 cm Tomas Ball Other [employer] Other 12-14-2022 14:45-0400 Body mass index (BMI) [Ratio] 29.23 kg/m2 Tomas Ball Other [employer] Other 12-14-2022 14:45-0400 Body weight 74.84 kg Tomas Ball Other [employer] Other 12-14-2022 14:45-0400 Diastolic blood pressure 78 mm[Hg] Tomas Ball Other [employer] Other 12-14-2022 14:45-0400 Respiratory rate 12 /min Tomas Ball Other [employer] Other 12-14-2022 14:45-0400 Systolic blood pressure 115 mm[Hg] Tomas Ball Other [employer] Other 11-16-2022 14:30-0400 Body height 160.02 cm Tomas Ball Other [employer] Other 11-16-2022 14:30-0400 Body mass index (BMI) [Ratio] 30.68 kg/m2 Tomas Ball Other [employer] Other 11-16-2022 14:30-0400 Body weight 78.56 kg Tomas Ball Other [employer] Other 11-16-2022 14:30-0400 Diastolic blood pressure 73 mm[Hg] Tomas Ball Other [employer] Other 11-16-2022 14:30-0400 Respiratory rate 12 /min Tomas Ball Other [employer] Other 11-16-2022 14:30-0400 Systolic blood pressure 113 mm[Hg] Tomas Ball Other [employer] Other 02-19-2022 10:55-0500 Body height 160.02 cm Aleena Solismond Other [employer] Other 02-19-2022 10:55-0500 Body mass index (BMI) [Ratio] 31.88 kg/m2 Aleena Solismond Other [employer] Other 02-19-2022 10:55-0500 Body temperature 98.3 [degF] Aleena Solismond Other [employer] Other 02-19-2022 10:55-0500 Body weight 81.65 kg Aleena Mariola Other [employer] Other 02-19-2022 10:55-0500 Diastolic blood pressure 77 mm[Hg] Aleena Mariola Other [employer] Other 02-19-2022 10:55-0500 Respiratory rate 18 /min Aleena Mariola Other [facility] Other 02-19-2022 10:55-0500 SaO2% (BldA) [Mass fraction] 97 % Aleena Mariola Other [facility] Other 02-19-2022 10:55-0500 Systolic blood pressure 117 mm[Hg] Aleena Garnett Other [facility] Other Encounters Encounter Date Encounter Type Care Provider Facility Start: 10-23-2023 End: 10-23-2023 ambulatory [facility] Work Phone: Start: 10-23-2023 End: 10-23-2023 Encounter for general adult medical examination without abnormal findings [facility] Start: 10-23-2023 End: 10-23-2023 Patient encounter procedure [facility] Work Phone: Start: 10-04-2023 End: 10-04-2023 ambulatory LUCIA HOLLIDAY Not Available Start: 05-01-2023 End: 05-01-2023 ambulatory Tomas Pfeiffer Other [facility] Other Start: 05-01-2023 Telephone encounter Tomas Ball [facility] Start: 04-28-2023 End: 04-28-2023 ambulatory Tomas Ball Other [facility] Other Start: 04-28-2023 Telephone encounter Tomas Ball [facility] Start: 04-27-2023 End: 04-27-2023 ambulatory Tomas Ball Other [facility] Other Start: 04-27-2023 Telephone encounter Tomas Ball [facility] Start: 03-06-2023 End: 03-06-2023 ambulatory Tomas Ball Other [facility] Other Start: 03-06-2023 Telephone encounter Tomas Ball [facility] Start: 02-28-2023 End: 02-28-2023 ambulatory Tomas Ball Other [facility] Other Start: 02-28-2023 Telephone encounter Tomas Ball [facility] Start: 02-27-2023 End: 02-27-2023 ambulatory Tomas Kentrell Other [facility] Other Start: 02-27-2023 Telephone encounter Tomas Pfeiffer [facility] Start: 02-14-2023 End: 02-14-2023 ambulatory Tomas Ball Other [facility] Other Start: 02-14-2023 Telephone encounter Tomas Ball [facility] Start: 01-16-2023 End: 01-16-2023 ambulatory Tomas Ball Other [facility] Other Start: 01-16-2023 Telephone encounter Tomas Pfeiffer [facility] Start: 01-06-2023 End: 01-06-2023 ambulatory Tomas Ball Other [facility] Other Start: 01-06-2023 Telephone encounter Tomas Pfeiffer [facility] Start: 12-29-2022 End: 12-29-2022 ambulatory Tomas Ball Other [facility] Other Start: 12-29-2022 Telephone encounter Tomas Pfeiffer [facility] Start: 12-16-2022 Telephone encounter Tomas Pfeiffer [facility] Start: 12-16-2022 End: 12-16-2022 ambulatory Tomas Ball [facility] [employer] Other Start: 12-14-2022 End: 12-14-2022 ambulatory Tomas Ball Other [facility] Other Start: 12-14-2022 Office outpatient vi sit 15 minutes Tomas Ball [facility] Start: 11-16-2022 End: 11-16-2022 ambulatory Tomas Ball Other [facility] Other Start: 11-16-2022 Office outpatient vi sit 15 minutes Tomas Ball [facility] Start: 11-01-2022 End: 11-01-2022 ambulatory Imad Asaad Other [facility] Other Start: 11-01-2022 Telephone encounter Imad Asaad [facility] Start: 10-18-2022 End: 10-18-2022 ambulatory Tomas Pfeiffer Other [facility] Other Start: 10-18-2022 Telephone encounter [facility] Start: 08-02-2022 End: 08-03-2022 ambulatory [facility] Facility:[facility] Start: 07-20-2022 End: 07-21-[address] ENZO LEYVA Facility:[facility] Start: 03-27-2022 End: 03-28-[address] TOMAS PFEIFFER Facility:[facility] Start: 02-23-2022 End: 03-26-[address] TOMAS PFEIFFER Facility:[facility] Start: 02-19-2022 End: 02-19-2022 ambulatory Aleena Garnett Other [facility] Other Start: 02-19-2022 Office outpatient vi sit 15 minutes Aleena Garnett [facility] Start: 01-03-2022 Encounter for preprocedural laboratory examination [facility] Start: 01-03-2022 End: 01-03-[address] SIN MARCUS Facility:[facility] Start: 12-30-2021 End: 12-31-2021 ambulatory [facility] Facility:[facility] Start: 12-30-2021 End: 12-31-2021 Encounter for preprocedural laboratory examination [facility] Facility:[facility] Start: 12-25-2021 Encounter for other preprocedural examination [facility] Start: 12-22-2021 End: 12-23-2021 ambulatory ISABELL FRASER Facility:[facility] Start: 12-22-2021 End: 12-23-2021 Encounter for other preprocedural examination ISABELL FRASER Facility:[facility] Start: 10-19-2021 Encounter for genera l adult medical examination without abnormal findings DR TOMAS PFEIFFER [facility] Start: 10-14-2021 End: 10-15-[address] TOMAS PFEIFFER Facility:[facility] Start: 09-01-2021 End: 09-02-2021 ambulatory PANTERA BILLINGS Facility:[facility] Start: 08-31-2021 End: 08-31-[address] LUCIA HOLLIDAY Facility:[facility] Start: 08-28-[address] LUCIA HOLLIDAY Facili ty:[facility]1 Start: 08-24-2021 End: 08-25-[address] SIN MARCUS Facility:[facility] Start: 08-19-2021 End: 08-20-[address] LUCIA HOLLIDAY Facility:[facility] Plan of Treatment Date Care Activity Detail Author Comprehensive metabo lic 2000 panel - Serum or Plasma [facility] enter MG Breast - bilateral Screening [facility] Immunizations Immunization Date Immunization Notes Care Provider Fa jnuo 02-15-2022 influenza virus vaccine, split virus (incl. purified surface antigen) Tomas Pfeiffer Other [facility] [employer] Other 02-15-2022 influenza virus vaccine, unspecified formulation [facility] 12-15-2020 influenza virus vaccine, split virus (incl. purified surface antigen) Tomas Pfeiffer Other [facility] [employer] Other 12-15-2020 influenza virus vaccine, unspecified formulation [facility] 01-18-2019 influenza virus vaccine, split virus (incl. purified surface antigen) Tomas Pfeiffer Other [facility] [employer] Other 01-18-2019 influenza virus vaccine, unspecified formulation [facility] 12-20-2017 influenza virus vaccine, split virus (incl. purified surface antigen) Tomas Pfeiffer Other [facility] [employer] Other 12-20-2017 influenza virus vaccine, unspecified formulation [facility] 08-14-2017 diphtheria, tetanus toxoids and acellular pertussis vaccine, unspecified formulation Tomas Pfeiffer Other [facility] 02-09-2017 influenza virus vaccine, split virus (incl. purified surface antigen) Tomas Pfeiffer Other [facility] Other 02-09-2017 influenza virus vaccine, unspecified formulation [facility] 12-22-2015 tetanus and diphtheria toxoids, adsorbed, preservative free, for adult use (5 Lf of tetanus toxoid and 2 Lf of diphtheria toxoid) Tomas Pfeiffer Other [facility] NEGATED: Highlighted row has not occurred!12-25-2019 influenza virus vaccine, split virus (incl. purified surface antigen) Tomas Pfeiffer Other [facility] Other Payers Date Payer Category Payer Self-pay 2022 Unknown [id number] 1965 Unknown [id number] 2.16.84 [id number] 1965 Unknown [id number] 2.16.84 0.1.864233.3.579.2.593 1965 Unknown [id number] 2.16.84 0.1.445285.3.579.2.593 1965 Unknown [id number] 2.16.84 0.1.090840.3.579.2.593 1965 Unknown [id number] 2.16.84 0.1.066617.3.579.2.593 1965 Unknown [id number] 2.16.84 0.1.135852.3.579.2.593 1965 Unknown [id number] 2.16.84 0.1.780789.3.579.2.593 1965 Unknown [id number] 2.16.84 0.1.320795.3.579.2.593 1965 Unknown [id number] 2.16.84 0.1.502520.3.579.2.593 1965 Unknown [id number] 2.16.84 0.1.657083.3.579.2.593 1965 Unknown [id number] 2.16.84 0.1.073365.3.579.2.593 1965 Unknown [id number] 2.16.84 0.1.217221.3.579.2.593 1965 Unknown [id number] 2.16.84 0.1.612750.3.579.2.593 1965 Unknown [id number] 2.16.84 0.1.730316.3.579.2.1259 1959 Unknown [id number] 2.16. [id number] 1959 Unknown [id number] Unknown [id number] 2.16.8 40.1.440231.3.579.2.531 Social History Date Type Detail Facility Sex Assigned At [employer] [facility] [employer] Other Start: 12-16-2022 [facility] Start: 1965 Sex Assigned At Female F [facility] Clinical Notes 08-24-2021 to 04-27-2023 Note Date & Type Note Facility 04-27-2023 Evaluation note Encounter Date Diagnosis Assessment Notes Apr, Autoimmune thyroiditis (ICD-10 - E06.3) [facility] [employer] Other 12-05-2023 Evaluation note* Encounter Date Diagnosis Assessment Notes Treatment Notes Treatment Clinical Notes Feb, Autoimmune thyroiditis (ICD-10 - E06.3) [facility] [employer] Other 11-21-2023 Evaluation note* Encounter Date Diagnosis Assessment Notes Treatment Notes Treatment Clinical Notes Jan, Other obesity due to excess calories (ICD-10 - E66.09) [facility] Other 10-23-2023 Evaluation note* Encounter Date Diagnosis Assessment Notes Treatment Notes Treatment Clinical Notes Dec, Other obesity due to excess calories (ICD-10 - E66.09) [facility] Other 09-20-2023 Evaluation note* Encounter Date Diagnosis Assessment Notes Treatment Notes Treatment Clinical Notes Nov, Autoimmune thyroiditis (ICD-10 - E06.3) Euthyroid. Yearly TSH. Clinically euthyroid, yearly TSH Nov, Other specified hypothyroidism (ICD-10 - E03.8) Nov, Other obesity due to excess calories (ICD-10 - E66.09) This patient has been instructed on a low-fat, high-fiber diet. They are instructed to reduce calories, portion sizes and snacks. It is recommended that they exercise for 30 minutes, 3-5 times weekly. Nov, Body mass index [BMI ] 30.0-30.9, adult (ICD-10 - Z68.30) [facility] Other 08-23-2023 Evaluation note* Encounter Date Diagnosis Assessment Notes Treatment Notes Treatment Clinical Notes Oct, Autoimmune thyroiditis (ICD-10 - E06.3) Euthyroid. Yearly TSH. Monitor TSH Recently adjusted her dose, recheck TSH after 6wks Oct, Other specified hypothyroidism (ICD-10 - E03.8) Oct, Other obesity due to excess calories (ICD-10 - E66.09) This patient has been instructed on a low-fat, high-fiber diet. They are instructed to reduce calories, portion sizes and snacks. It is recommended that they exercise for 30 minutes, 3-5 times weekly. Has lost 9 lbs since starting [employer] Aware that can refill until BMI < 27 Oct, Body mass index [BMI ] 30.0-30.9, adult (ICD-10 - Z68.30) [facility] Other 07-25-2023 Evaluation note* Encounter Date Diagnosis Assessment Notes Treatment Notes Treatment Clinical Notes Sep, Autoimmune thyroiditis (ICD-10 - E06.3) Euthyroid. Yearly TSH. [facility] Other 04-27-2023 NotePROCEDURE: XR ANKLE RT MIN 3 VIEWS HISTORY: Pain COMPARISON: XR ankle right 01/03/2022 FINDINGS: BONES:Chronic, small separate ossification at tip of lateral malleolus; ununited secondary ossification center versus remote fracture. Intact, uniform ankle joint. SOFT TISSUES:Mild lateral soft tissue swelling. EFFUSION:None visible. OTHER: Negative. IMPRESSION: 1. No acute bone abnormality or significant degenerative joint disease. Electronically authenticated by: ENZO LEYVA Date: 2022-07-21 07:56[facility]11-26-2022 Evaluation note* Encounter Date Diagnosis Assessment Notes Treatment Notes Treatment Clinical Notes Jan, Contact with and (suspected) exposure to other viral communicable diseases (ICD-10 - Z20.828) Jan, Acute pharyngitis due to other specified organisms (ICD-10 - J02.8) Viral pharyngitis home care material was printed Drink plenty fluids, get plenty of rest. Take the amoxicillin and prednisone as prescribed until gone. Take Tylenol or Motrin as needed for aches pains or fevers. Follow-up with your family physician if no improvement in 2 to 3 days Jan, Other specified bacterial agents as the cause of diseases classified elsewhere (ICD-10 - B96.89) [facility] Other 10-10-2022 NotePROCEDURE: XR ANKLE RT MIN 3 VIEWS COMPARISON: 08/24/2021 HISTORY: Pain FINDINGS: BONES:No acute fracture or dislocation. Minimal enthesopathic spurring plantar calcaneus. SOFT TISSUES:Lateral soft tissue swelling. Subcutaneous emphysema. Lateral surgical skin monse EFFUSION:None visible. OTHER: Posterior splint obscures detail IMPRESSION: Lateral postsurgical changes Electronically authenticated by: SIN MARCUS Date: 2022-01-03 16:07[facility]06-07-2022 NoteOPERATIVE NOTE OPERATION DATE: 08/31/2021 PRIMARY CARE PHYSICIAN: Dr. Pfeiffer SURGEON: Lucia Holliday M.D. PREOPERATIVE DIAGNOSIS: Eustachian tube dysfunction. POSTOPERATIVE DIAGNOSIS: Eustachian tube dysfunction. PROCEDURE: Bilateral myringotomy and tube with microdissection, placement of T- tubes. ANESTHESIA: General LMA COMPLICATIONS: None. FINDINGS: Bilateral dry middle ears with moderate to severe myringosclerosis. INDICATIONS: This 55-year-old woman presented with bilateral ear fullness, popping and otalgia, unresponsive to aggressive medical management. PROCEDURE: Patient identified in the holding area and taken back to the OR where she was placed in the supine position. After induction of general anesthesia by mask, the right ear was approached with the otomicroscope. Cerumen cleaned from the canal using a cerumen curette and an anterior radial myringotomy was performed. A modified Francisco Javier's T-tube was folded and inserted in the middle ear and then opened in the middle ear using microdissection. Attention was turned to the left ear and the same procedure performed. The patient was then awakened and taken to the recovery room in good condition. [facility] Signed and Approved by: DR LUCIA HOLLIDAY 09/07/2021 10:29:00[facility]05-31-2022 NotePROCEDURE: XR FOOT RT MIN 3 VIEWS, XR ANKLE RT MIN 3 VIEWS COMPARISON: 12/04/2019 HISTORY: Pain in right foot FINDINGS: BONES:No acute fracture or dislocation. Mild to moderate enthesopathic spurring of the calcaneus at the Achilles and plantar insertions. SOFT TISSUES:Negative. No visible soft tissue swelling. EFFUSION:None visible. OTHER: Negative. IMPRESSION: No acute abnormality of the foot or ankle Electronically authenticated by: SIN MARCUS Date: 2021-08-24 16:27[facility]05-31-2022 NotePROCEDURE: XR FOOT RT MIN 3 VIEWS, XR ANKLE RT MIN 3 VIEWS COMPARISON: 12/04/2019 HISTORY: Pain in right foot FINDINGS: BONES:No acute fracture or dislocation. Mild to moderate enthesopathic spurring of the calcaneus at the Achilles and plantar insertions. SOFT TISSUES:Negative. No visible soft tissue swelling. EFFUSION:None visible. OTHER: Negative. IMPRESSION: No acute abnormality of the foot or ankle Electronically authenticated by: SIN MARCUS Date: 2021-08-24 16:27[facility] [place] [place] [employer] Other Evaluation note* Diagnosis Onset Date Resolution Status Arthritis of both ankles acu te Hypothyroid acute Screening mammogram for breast cancer noneactive Wellness examination noneact [facility] Work Phone: History general Narrative - Reported* Type Description Date Medical History hypothyroid Medical History migraines Medical History PCO Medical History cervical dysplasia Surgical History hysterectomy Surgical History T&A 1972 Surgical History BTL 1987 Surgical History bilat. carpal tunnel release 13 06 Surgical History MARYJANE 2003 Surgical History R foot surg. x 2 Surgical History left foot/ankle surgery- Dr Joel mckeon 2019 Surgical History lumbar surgery, dr car Surgical History right foot Hospitalization History see surgical hx [facility] Other History general Narrative - Reported* Type Description Date Medical History hypothyroid Medical History migraines Medical History PCO Medical History cervical dysplasia Surgical History hysterectomy Surgical History T&A 1973 Surgical History BTL 1987 Surgical History bilat. carpal tunnel release 20 Surgical History MARYJANE 2004 Surgical History R foot surg. x 2 Surgical History left foot/ankle surgery- Dr Joel Kline Surgical History lumbar surgery, dr car Surgical History right foot Surgical History Colonoscopy w/ polypectomy 12/14 22 Hospitalization History see surgical hx [facility] Other History general Narrative - Reported* Type Description Date Medical History hypothyroid Medical History migraines Medical History PCO Medical History cervical dysplasia Surgical History hysterectomy Surgical History T&A 1973 Surgical History BTL 1987 Surgical History bilat. carpal tunnel release 13 06 Surgical History MARYJANE 2004 Surgical History R foot surg. x 2 Surgical History left foot/ankle surgery- Dr Joel mckeon 2019 Surgical History lumbar surgery, dr car Surgical History right foot Surgical History Colonoscopy w/ polypectomy, (re peat 10 years) 11/2022 Hospitalization History see surgical hx [facility] Other Summary Purpose Family History Relationship Condition Age at Onset Recorded Date/T issa Not Specified Diabetes mellitus Unknown Heart disease Unknown Unknown Hypertension Unknown Advance Directives Advance Directive Response Recorded Date/ Time Advance Directives No November 9:18am Chief Complaint and Reason for Visit Chief Complaint Wellness Reason for Visit Arthritis of both an kles Hypothyroid Screening mammogram for breast cancer Wellness examination Additional Source Comments REASON FOR VISIT (unrecogniz ed section and content) SORE THROATLab ResultsMAIL P PW1 month Follow up1 month Follow upNo InformationTSH resultsGASTRO REFERRALRefillRefillrepeat labLab orderTSH resultsRepeat labsNo InformationThyroid results INFORMATION SOURCE (unrecogn ized section and content) DATE CREATED AUTHOR 08/07/2022 Mandy najera DATE CREATED AUTHOR AUTHOR'S ORGANIZ ATION 12/30/2022 [facility] DATE CREATED AUTHOR AUTHOR'S ORGANIZ ATION 10/11/2023 [facility] Care Teams (unrecognized sec tion and content) Team Status: Active Member Role Status Dates Tomas Pfeiffer , Primary Care Provider Active Team Status: Inactive Member Role Status Dates Tomas Pfeiffer , Primary Care Provide r, Attending Provider Active Start: October 23, 2023 End: October 23, 2023 Goals (unrecognized section and content) Goals may be documented in a n alternate section FOR RECORDS PERTAINING TO PATIENTS WHO ARE OR HAVE BEEN ENROLLED IN A CHEMICAL DEPENDENCY/SUBSTANCEABUSE PROGRAM, SOME INFORMATION MAY BE OMITTED. This clinical summary was aggregated from multiple sources. Caution should be exercised in using it in the provision of clinical care. This summary normalizes information from multiple sources, and as a consequence, information in this document may materially change the coding, format and clinical context of patient data. In addition, data may be omitted in some cases. CLINICAL DECISIONS SHOULD BE BASED ON THE PRIMARY CLINICAL RECORDS. [facility] [employer] [facility]. provides no warranty or guarantee of the accuracy or completeness of information in this document.
[2023-10-24 11:11] LABS: Basophils Absolute Auto 0.1 10^3/uL (0.0-0.1); Basophils Percent Auto 0.8 % (0.2-2.0); Eosinophils Absolute Auto 0.1 10^3/uL (0.0-0.7); Eosinophils Percent Auto 0.6 % (0.9-7.0); Hematocrit 38.8 % (36.0-48.0); Hemoglobin 12.8 g/dL (12.0-16.0); Immature Granulocytes Abs Auto 0.03 10^3/uL (0.00-0.03); Immature Granulocytes Pct Auto 0.3 % (0.0-0.5); Lymphocytes Absolute Auto 3.7 10^3/uL (1.2-3.8); Lymphocytes Percent Auto 40.7 % (20.5-60.0); Mean Corpuscular Hemoglobin 27.8 pg (26.7-34.0); Mean Corpuscular Volume 84.2 fL (81.0-99.0); Mean Platelet Volume 10.6 fL (9.5-13.5); Monocytes Absolute Auto 0.8 10^3/uL (0.3-0.8); Monocytes Percent Auto 8.9 % (1.7-12.0); Neutrophils Absolute Auto 4.4 10^3/uL (1.4-6.5); Neutrophils Percent Auto 48.7 % (43.0-75.0); Platelet Count 274 10^3/uL (150-450); Red Blood Count 4.61 10^6/uL (4.20-5.40); Red Cell Distribution Width 13.7 % (11.0-15.0); White Blood Count 9.1 10^3/uL (4.0-11.0)
[2023-10-24 12:13] LABS: Alanine Aminotransferase 32 U/L (14-59); Albumin Globulin Ratio 1.1; Albumin Level 3.3 g/dL (3.4-5.0); Alkaline Phosphatase 95 U/L (46-116); Anion Gap 9.7; Aspartate Amino Transferase 17 U/L (15-37); BUN Creatinine Ratio 31.6; Bilirubin Total 0.3 mg/dL (0.2-1.0); Calcium 8.7 mg/dL (8.5-10.1); Carbon Dioxide 26.2 mmol/L (21.0-32.0); Chloride 104 mmol/L (98-107); Chol HDL Ratio 3.8; Cholesterol 165 mg/dL (<=200); Estimated GFR (African America >60 (>=60); Estimated GFR (Non-African Ame >60 (>=60); Globulin 3.1 g/dL; Glucose 90 mg/dL (74-106); HDL Cholesterol 44 mg/dL (40-60); LDL Cholesterol Calculated 99.6 mg/dL; Potassium 3.9 mmol/L (3.5-5.1); Sodium 136 mmol/L (136-145); Thyroid Stimulating Hormone 0.405 uIU/mL (0.358-3.740); Total Protein 6.4 g/dL (6.4-8.2); Triglycerides 107 mg/dL (<=150); VLDL CHOLESTEROL 21.4 mg/dL
== END 2023-10-24 10:38 | disposition home or self-care (01) ==
LOC: LAB 10:37
PROVIDERS: PCP Internal Medicine; Visit Provider Internal Medicine
DX: Z00.00 Encounter for general adult medical examination without abnormal findings (principal)
CPT/HCPCS: 36415; 80053; 80061; 84443; 85025

== ENCOUNTER 2023-11-28 15:41 | Outpatient (OUT) | payer OTHER, SELFPAY ==
--- NOTE | 2023-11-28 15:44 | MM_ITS ---
Patient Name: ARIK VELARDE MR#: [id number] : 1965 Exam Date: 11/28/2023 Ordering Doctor: DR Tomas Pfeiffer D.O. RADIOLOGY REPORT PROCEDURE: MM TOMOSYNTHESIS SCREENING BI COMPARISON: MM TOMOSYNTHESIS SCREENING BI, 11/10/2022. MG MAMM SCREEN 3D GERMAINE CAD, 10/14/2021. MG MAMM SCREEN 3D GERMAINE CAD, 10/13/2020. MG MAMM GERMAINE SCRN W CAD DIG, 07/09/2013. INDICATIONS: Screening Calculator Name NCI Breast Cancer Risk Assessment Tool 5 Year Breast Cancer Risk 0.90% Lifetime Breast Cancer Risk 5.10% Personal Breast Cancer No Personal Ovarian Cancer No Treatments None Family Cancers None LOCATION: [facility] BREAST COMPOSITION: There are scattered areas of fibroglandular density. FINDINGS: DIAGNOSTIC CATEGORY 2--BENIGN FINDING: RIGHT BREAST: No significant suspicious finding. Scattered benign-appearing calcifications are present. No significant change has occurred. LEFT BREAST: No significant suspicious finding. Scattered benign-appearing calcifications are present. No significant change has occurred. RECOMMENDATIONS: ROUTINE MAMMOGRAM AND CLINICAL EVALUATION IN 12 MONTHS. PLEASE NOTE: A NORMAL MAMMOGRAM DOES NOT EXCLUDE THE POSSIBILITY OF BREAST CANCER. A CLINICALLY SUSPICIOUS PALPABLE LUMP SHOULD BE BIOPSIED. Dictated by: Enzo Leyva M.D. on 12/01/2023 at 08:59 Approved by: Enzo Leyva M.D. on 12/01/2023 at 09:04
== END 2023-11-28 15:42 | disposition home or self-care (01) ==
LOC: MAMMO 15:41
PROVIDERS: PCP Internal Medicine; Visit Provider Internal Medicine
DX: Z12.31 Encounter for screening mammogram for malignant neoplasm of breast (principal)
CPT/HCPCS: 77063; 77067

== ENCOUNTER 2024-10-28 15:58 | Outpatient (OUT) | payer BC, SELFPAY ==
--- OUTSIDE RECORDS SUMMARY | 2024-10-28 16:04 | XMS_ITS | Encounter Summary ---
Author Organization [facility] [employer] s [employer] Address [id number] [address] [place] [address] Care Team Providers Care Stain Remover Name Role Phone Tomas Pfeiffer DO Primary Care Provider [phone] Encounter Details Date Type Department Care Team (Late st Contact Info) Description 10/27/2017 Documentation [facility] [address] [place] [id number] Stephanie Bean RN Social History Tobacco Use Types Packs/Day Years Used Date Smoking Tobacco: Never Smokeless Tobacco: Never Alcohol Use Standard Drinks/Week Comments No 0 (1 standard drink = 0.6 oz pur e alcohol) Comments No Sex and Gender Information Value Date Recorded Sex Assigned at Not on file Legal Sex Female 3:14 PM EDT Gender Identity Not on file Sexual Orientation Not on file documented as of this encounter Plan of Treatment Not on file documented as of this encounter Visit Diagnoses Not on filedocumented in this encounter Care Teams Stain Remover Relationship Specialty Start Date End Date Tomas Pfeiffer DO [address] [place] [address] PCP - General 11/30/16 documented as of this encounter
--- OUTSIDE RECORDS SUMMARY | 2024-10-28 16:04 | XMS_ITS | Clinical Summary ---
Author Organization [facility] Address [address] [place] [address] Care Team Providers Care Duralumin Metalworker Name Role Phone Tomas Pfeiffer Primary Care Provider [phone] Allergies No known active allergies Medications levothyroxine (Synthroid, Levoxyl) 175 MCG tablet Take 75 mcg by mouth 1 (one) time each day at the same time Active ciprofloxacin-d exAMETHasone (CiproDEX) otic suspensionIndic ations:Acute myringitis of ear, right Administer 4 drops into the right ear in the morning and 4 drops before bedtime. Do all this for 7 days. 7.5 mL 10/10/19 25 Active Problems Problem Noted Date Diagnosed Date Autoimmune hypothyroidism 10/02/2024 Cervical dysplasia 10/02/2024 Chronic pain 10/02/2024 Chronic sinusitis 10/02/2024 COVID-19 10/02/2024 Encounter by telehealth for suspected COVID-19 0 10/02/2024 Edema leg 10/02/2024 Depression screen 10/02/2024 Encounter for screening mamm ogram for malignant neoplasm of breast 10/02/2024 Equinus contracture of ankle 10/02/2024 Exogenous obesity 10/02/2024 Generalized gingivitis 10/02/2024 H/O motion sickness 10/02/2024 Late effect of fracture of lower extremity 10/02 Left ankle instability 10/02/2024 Lumbar spondylosis 10/02/2024 Nerve entrapment syndrome of right ankle 025 Ankle impingement syndrome 10/02/2024 Pain in right ankle and joints of right foot 11/2024 Pain in left foot 10/02/2024 Patellofemoral syndrome of left knee 10/02/2024 PCOD (polycystic ovarian disease) 10/02/2024 Peroneal tendinitis, right leg 10/02/2024 Plantar fascial fibromatosis of left foot 2024 Primary osteoarthritis, right ankle and foot 11/2024 Sprain of anterior talofibular ligament of right ankle 10/02/2024 Strain of muscle(s) and tend on(s) of peroneal muscle group at lower leg level, left leg, sequela 10/02/2024 Stress fracture of metatarsal bone 10/02/2024 Tarsal coalition of right foot 10/02/2024 Dysfunction of both eustachian tubes 09/22/2022 Sensorineural hearing loss, bilateral 09/22/2022 Hypothyroid 09/22/2022 Disc displacement, lumbar 10/19/2017 Overview (10/02/2024): Added automatically from request for surgery [id number] Disorder of sacrum 05/31/2017 Lumbosacral spondylosis without myelopathy 02/08 Overview (10/02/2024): Added automatically from request for surgery [id number] Encounters Date Type Department Care Team Description 10/02/2024 3:30 PM EDT Office Visit [facility] [address] [facility] [address] [place] [address] Lucia Wadsworth MD Dysfunction of both eustachian tubes (Primary Dx); Acute myringitis of ear, right 10/02/2024 Bamboo flowsheet [facility] [address] [facility] [address] [place] [address] Lucia Wadsworth MD 10/02/2024 Travel from Last 3 Months Immunizations Immunization Administration Dates Next Due Tdap 08/14/2017 Family History Medical History Relation Name Comments Heart failure Father Marvin Ruiz Diabetes Maternal Grandfather Skinny Tavener Heart failure Maternal Grandfather Skinny Tavener Diabetes Mother Manoj Sterling Heart failure Mother Manoj Sterling Hypertension Mother Manoj Sterling Relation Name Status Comments Father Marvin Ruiz Maternal Grandfather Skinny Walter Mother Manoj Sterling Social History Tobacco Use Types Packs/Day Years Used Date Smoking Tobacco: Never Smokeless Tobacco: Never Tobacco Cessation:Counseling Given: Not Answered Alcohol Use Standard Drinks/Week Comments Not Currently 0 (1 standard drink = 0.6 oz pur e alcohol) Comments Unknown Sex and Gender Information Value Date Recorded Sex Assigned at Female 09/21/2022 8:42 AM EDT Legal Sex Female 7:36 PM EDT Gender Identity Female 09/21/2022 8:42 AM EDT Sexual Orientation Not on file Last Filed Vital Signs Vital Sign Reading Time Taken Comments Blood Pressure 104/70 10/02/2024 3:26 PM EDT Pulse 68 10/02/2024 3:26 PM EDT Temperature - - Respiratory Rate - - Oxygen Saturation - - Inhaled Oxygen Concentration - - Weight 82.6 kg (182 lb) 10/02/2024 3:26 PM EDT Height 160 cm (5' 3 ) 10/02/2024 3:26 PM EDT Body Mass Index 32.24 10/02/2024 3:26 PM EDT Plan of Treatment Health Maintenance Due Date Last Done Comments CT Colonography 1965 Colonoscopy 1965 Colorectal Cancer Screening 1965 FIT-DNA 1965 FIT 1965 FOBT 1965 Sigmoidoscopy 1965 Pap Smear 1986 Cervical Cancer Screening 10/08/1995 HPV/Cotest 10/08/1995 Mammogram 2005 Influenza Vaccine (#1) 2024 , 03/29/2023, 12/15/2020, Additional history exists Insurance [facility] [id number] [facility] Care Teams Duralumin Metalworker Relationship Specialty Start Date End Date Tomas Pfeiffer DO [address] [place] [id number] PCP - General Internal Medicine 09/23/24
[2024-10-28 16:23] LABS: Hematocrit 38.7 % (36.0-48.0); Hemoglobin 12.9 g/dL (12.0-16.0); Immature Granulocytes Abs Auto 0.02 10^3/uL (0.00-0.03); Immature Granulocytes Pct Auto 0.2 % (0.0-0.5); Lymphocytes Absolute Auto 3.4 10^3/uL (1.2-3.8); Mean Corpuscular HGB Conc 33.3 g/dL (29.9-35.2); Mean Corpuscular Hemoglobin 27.7 pg (26.7-34.0); Mean Corpuscular Volume 83.2 fL (81.0-99.0); Platelet Count 254 10^3/uL (150-450); Red Blood Count 4.65 10^6/uL (4.20-5.40); White Blood Count 9.9 10^3/uL (4.0-11.0)
[2024-10-28 16:45] LABS: Alanine Aminotransferase 43 U/L (14-59); Albumin Globulin Ratio 1.0; Albumin Level 3.7 g/dL (3.4-5.0); Alkaline Phosphatase 118 U/L (46-116); Anion Gap 11.2; Aspartate Amino Transferase 23 U/L (15-37); Blood Urea Nitrogen 15.0 mg/dL (7.0-18.0); Calcium 9.1 mg/dL (8.5-10.1); Carbon Dioxide 27.4 mmol/L (21.0-32.0); Chloride 102 mmol/L (98-107); Cholesterol 156 mg/dL (<=200); Estimated GFR (African America >60 (>=60 mL/min/1.73m^2); Estimated GFR (Non-African Ame >60 (>=60 mL/min/1.73m^2); Globulin 3.6 g/dL; Glucose 86 mg/dL (74-106); HDL Cholesterol 39 mg/dL (40-60); Potassium 3.6 mmol/L (3.5-5.1); Sodium 137 mmol/L (136-145); Thyroid Stimulating Hormone 0.603 uIU/mL (0.358-3.740); Total Protein 7.3 g/dL (6.4-8.2); Triglycerides 115 mg/dL (<=150); VLDL CHOLESTEROL 23.0 mg/dL
== END 2024-10-28 15:59 | disposition home or self-care (01) ==
PROVIDERS: PCP Internal Medicine; Visit Provider Internal Medicine
DX: Z00.00 Encounter for general adult medical examination without abnormal findings (principal)
CPT/HCPCS: 36415; 80053; 80061; 84443; 85025

== ENCOUNTER 2024-11-26 15:52 | Outpatient (OUT) | payer BC, SELFPAY ==
--- OUTSIDE RECORDS SUMMARY | 2020-07-09 11:15 | XMS_ITS | Continuity of Care Document ---
Author Organization [facility] Address [address] [place] [address] Phone Care Team Providers Care Handkerchief Presser Name Role Phone Francisco Javier Bush Unavailable Unavailable Procedures Procedure Date Moderna COVID Vaccine Admin Dose 2 Moderna COVID-19 Vaccine Moderna COVID Vaccine Admin Dose 1 Moderna COVID-19 Vaccine Advance Directives Directive Yes / No Effective Date File Name No Information Encounters Encounter Description Practice Location Reason(s) For Visit Diagnoses Date Provider Providers Copied on Encounter [facility], [address], [place], [id number], [place] tel:[phone] COVID [facility] No Information Mary Cook. [address], [place], [id number], [place]. tel:[phone] [facility], [address], [place], [id number], tel:[phone] COVID [facility] No Information Mary Cook. [address], [place], [id number], [place]. tel:[phone] Family History Family Member Type Diagnosis Age At Onset No Information Immunizations Vaccine Date Status Comments Moderna COVID administered Source: New Im munization Record Moderna COVID administered Source: New Im munization Record Payers Payer name Insurance type Covered alliance party ID Authoriza tion(s) [place] [id number] [employer] [place] [id number] [employer] [place] [id number] Social History Type Description Quantity Date Captured Comments Alcohol Use Details Unknown Caffeine Use Details Unknown Tobacco Use Status No Information Smoking Status No Information Sex Female Sexual Orientation Don't Know Gender Identity Female Chief Complaint And Reason For Visit No Information Reason For Referral Reason For Referral No Information History Of Present Illness Encounter Date Complaint History Of Prese nt Illness No Information Functional Status Date Functional Assessmen t No Information Instructions Date Instruction Additional Infor mation No Information Assessments Type Assessment Date No Information Patient Care Teams Name Effective Dates (start - stop) Status Members No Information
--- NOTE | 2024-11-26 15:54 | MM_ITS ---
Patient Name: ARIK VELARDE MR#: [id number] : 1965 Exam Date: 11/26/2024 Ordering Doctor: DR ANDREW PERLA D.O. RADIOLOGY REPORT PROCEDURE: MM TOMOSYNTHESIS SCREENING BI COMPARISON: MM TOMOSYNTHESIS SCREENING BI, 11/28/2023. MM TOMOSYNTHESIS SCREENING BI, 11/10/2022. MG MAMM SCREEN 3D GERMAINE CAD, 10/14/2021. MG MAMM GERMAINE SCRN W CAD DIG, 07/09/2013. INDICATIONS: screening Calculator Name NCI Breast Cancer Risk Assessment Tool 5 Year Breast Cancer Risk 0.90% Lifetime Breast Cancer Risk 5.00% Personal Breast Cancer No Personal Ovarian Cancer No Treatments None Family Cancers None LOCATION: [facility] BREAST COMPOSITION: There are scattered areas of fibroglandular density. FINDINGS: DIAGNOSTIC CATEGORY 2--BENIGN FINDING. NO CHANGE FROM COMPARISON. RIGHT BREAST: No significant suspicious finding. Benign-appearing calcifications are present with benign-appearing moved nodes along the chest wall. LEFT BREAST: No significant suspicious finding. Benign-appearing calcifications are present with benign-appearing moved nodes along the chest wall. RECOMMENDATIONS: ROUTINE MAMMOGRAM AND CLINICAL EVALUATION IN 12 MONTHS. Dictated by: Andrew Garza MD on 11/27/2024 at 14:02 Approved by: Andrew Garza MD on 11/27/2024 at 14:25
--- OUTSIDE RECORDS SUMMARY | 2024-11-26 15:55 | XMS_ITS | Encounter Summary ---
Author Organization [facility] Frameri [facility] tem Address [id number] [address] [place] [address] Care Team Providers Care Machine Spring Former Name Role Phone Tomas Pfeiffer DO Primary Care Provider [phone] Encounter Details Date Type Department Care Team (Late st Contact Info) Description 10/27/2017 Documentation [facility] [address] [place] [id number] Stephanie Bean RN Social History Tobacco Use [...] on filedocumented in this encounter Care Teams Machine Spring Former Relationship Specialty Start Date End Date Tomas Pfeiffer DO [address] [place] [address] PCP - General 11/30/16 documented as of this encounter
--- OUTSIDE RECORDS SUMMARY | 2024-11-26 15:55 | XMS_ITS | Clinical Summary ---
Author Organization [facility] Address [address] [place] [address] Care Team Providers Care Hogshead Mat Inspector Name Role Phone Tomas Pfeiffer Primary Care Provider [phone] Allergies No known active allergies Medications levothyroxine (Synthroid, Levoxyl) 175 MCG tablet Take 75 mcg by mouth 1 (one) time each day at the same time Active Active Problems Problem Noted Date Diagnosed Date [...] (10/02/2024): Added automatically from request for surgery [id number] Disorder of sacrum 05/31/2017 Lumbosacral spondylosis without myelopathy 02/08 Overview (10/02/2024): Added automatically from request for surgery [id number] Encounters Date Type Department Care Team Description 10/02/2024 3:30 PM EDT Office Visit [facility] [address] [facility] [address] [place] [address] Lucia Wadsworth MD Dysfunction of both eustachian tubes (Primary Dx); Acute myringitis of ear, right 10/02/2024 Bamboo flowsheet [facility] [address] [facility] [address] [place] [address] Lucia Wadsworth MD 10/02/2024 Travel from Last 3 Months Immunizations Immunization Administration Dates Next Due Tdap 08/14/2017 Family History Medical History Relation Name Comments Heart failure Father Marvin Ruiz Diabetes Maternal Grandfather Skinny Walter Heart failure Maternal Grandfather Skinny Walter Diabetes Mother Manoj Sterling Heart failure Mother [...] 10/08/1995 Mammogram 2005 Influenza Vaccine (#1) 2024 4, 03/29/2023, 12/15/2020, Additional history exists Insurance BS Care Teams Hogshead Mat Inspector Relationship Specialty Start Date End Date Tomas Pfeiffer DO [address] [place] [address] PCP - General Internal Medicine 09/23/24
--- OUTSIDE RECORDS SUMMARY | 2024-11-26 16:15 | XMS_ITS | CCD ---
Author Organization [facility] Care Team Providers Care Building Custodian Name Role Phone Aleena Garnett Unavailable MG, DR MAIER Consulting Unavailable BALL, DR MORALES Primary Care Unavailable TIMMIS, DR MAIER Attending Unavailable TIMMIS, DR MAIER Admitting Unavailable JACKIE AMES Consulting Unavailable ENZO HAWKINS Consulting Unavailable AMRIT, DR SIN Srivastava Consulting Unavailable KENTRELL, DR MORALES Primary Care Unavailable PONCE NORTH Attending Unavailable PONCE NORTH Admitting Unavailable PONCE NORTH Consulting Unavailable ELÍAS .GLEN Consulting Unavailable MORGOSBALJINDER Consulting Unavailable SHARPLORENZO Consulting Unavailable TIMMIS, DR MAIER Consulting Unavailable BALL, DR MORALES Primary Care Unavailable TIMMIS, DR MAIER Attending Unavailable TIMMIS, DR MAIER Admitting Unavailable TIMMIS, DR MAIER Consulting Unavailable BALL, DR MORALES Primary Care Unavailable TIMMIS, DR MAIER Attending Unavailable TIMMIS, DR MAIER Admitting Unavailable PONCE NORTH Consulting Unavailable KENTRELL, DR MORALES Primary Care Unavailable PONCE NORTH Attending Unavailable PONCE NORTH Admitting Unavailable FRASERISABELL TREVIÑO Consulting Unavailable KENTRELL, DR MORALES Primary Care Unavailable PONCE NORTH Attending Unavailable PONCE NORTH Admitting Unavailable KENTRELL, DR MORALES Primary Care Unavailable [...] Imad Attending Unavailable Asaad, Imad Admitting Unavailable Tomas Pfeiffer DO Primary Care Provider LUCIA HOLLIDAY Attending Unavailable Tomas Pfeiffer DO Primary Care Provider Tomas Pfeiffer DO Attending Provider [phone] Medications Current Medications Medication Drug Class(es) Dates Sig (Normalized) Sig (Original) ciprofloxacin 3 mg/ml / dexamethasone 1 mg/ml otic suspension (2 sources) Corticosteroid, Quinolone Antimicrobial Start: 10-02-2024 End: 10-09-2024 ciprofloxacin-de xAMETHasone (CiproDEX) otic suspension Indications: Acute myringitis of ear, right Administer 4 drops into the right ear in the morning and 4 drops before bedtime. Do all this for 7 days. 7.5 mL 10/02/2024 10/09/2024 Active HYDROcodone (15 sources) Opioid Agonist Start: 03-24-2022 Start: 03-24-2022 levothyroxine sodium 0.175 mg oral tablet (20 sources) l-Thyroxine Start: 07-25-2024 take 1 tablet by mouth once daily Levothyroxine 175 mcg tablet Active 0 .ROUTE .COMPLEX July 25, 2024 12:56pm TAKE 1 TABLET BY MOUTH DAILY Complies with drug therapy Start: 10-23-2023 End: 07-25-2024 take 1 tablet by mouth once daily Levothyroxine 175 mcg tablet Discontinued 175 MCG PO Daily October 23, 2023 3:19pm July 25, 2024 12:57pm Start: 07-24-2023 End: 10-23-2023 Levothyroxine 175 mcg tablet Discontinued 0 .ROUTE .COMPLEX July 24, 2023 10:06pm October 23, 2023 [...] take 1 tablet by mouth once daily Levothyroxine 175 mcg tablet Discontinued 175 MCG PO Daily December 15, 2022 12:00am July 24, 2023 10:06pm Start: 10-18-2021 take 0.5 tablet by m outh once daily Levothyroxine Sodium 175MCG Levothyroxine Sodium 175MCG, 1 (one) Tablet Tablet daily, except take and extra 1/2 tab on Mon and Thurs # 102, 10/18/2021, Ref. x3. Active Oral daily, except take and extra 1/2 tab on Mon and Thurs for 0 Sep, Not-Taking/PRN Start: 10-18-2021 take 0.5 tablet by m outh once daily Levothyroxine Sodium 175MCG Levothyroxine Sodium 175MCG, 1 (one) Tablet Tablet daily, except take and extra 1/2 tab on Mon and Thurs # 102, 10/18/2021, Ref. x3. Active Oral daily, except take and extra 1/2 tab on Mon and Thurs for 0 Sep, Not-Taking levothyroxine (S ynthroid, Levoxyl) 175 MCG tablet Take 75 mcg by mouth 1 (one) time each day at the same time Active Levothyroxine So dium 175 MCG 1 1/2 tabs on Monday, 1 tab all the remaining days Orally Once a day Active take 1 tablet by avril th once daily in the morning Levothyroxine Sodium 175 MCG 1 tablet in the morning on an empty stomach Orally daily Active polyethylene glycol [id number] [id number] mg / potassium chloride 2970 mg / sodium bicarbonate 6740 mg / sodium chloride 5860 mg / sodium sulfate 40130 mg powder for oral solution (14 sources) Osmotic Laxative Start: 11-01-2022 take 236 g by mouth once daily Golytely 236 GM as directed Orally once daily for 1 days Oct, Active Semaglutide (Weight Loss) (1 source) Start: 10-28-2024 Semaglutide (Weight Loss) (Wegovy) 0.25 mg/0.5 mL pen injector Active 0.25 MG SUBCUT every week 2 October 28, 2024 12:00am administer weeks 1 through 4 of therapy Complies with drug therapy Completed/Discontinued Medications Medication Drug Class(es) Dates Sig [...] a day for 10 day(s) Jan, Not-Taking/PRN linaclotide 0.29 mg oral capsule (4 sources) Guanylate Cyclase-C Agonist Start: 10-30-2023 End: 10-28-2024 take 1 capsule by mouth once daily Linaclotide 290 mcg capsule Discontinued 290 MCG PO Daily November 01, 2023 4:25pm October 28, 2024 3:09pm lubiprostone 0.008 mg oral capsule (5 sources) Chloride Channel Activator Start: 10-25-2023 End: 10-30-2023 take 1 capsule by mouth once daily Lubiprostone (Amitiza) 8 mcg capsule Discontinued 8 MCG PO Daily October 25, 2023 9:50am October 30, 2023 9:20pm Start: 10-23-2023 End: 10-30-2023 take 1 capsule by mouth once daily Lubiprostone (Amitiza) 8 mcg capsule Discontinued 8 MCG PO Daily October 25, 2023 9:50am October 30, 2023 9:20pm Start: 10-23-2023 End: 10-25-2023 take 1 capsule by mouth once daily Lubiprostone (Amitiza) 8 mcg capsule Discontinued 8 MCG PO Daily October 23, 2023 12:00am October 25, 2023 9:50am Start: 10-23-2023 take 1 capsule by mo [facility] once daily Lubiprostone (Amitiza) 8 mcg capsule Active 8 MCG PO Daily October 23, 2023 12:00am meclizine hydrochloride 25 mg chewable tablet (20 sources) Antiemetic Start: 10-23-2023 End: 10-28-2024 take 1 tablet by mouth once daily as needed Meclizine 25 mg tablet,chewable Discontinued 25 MG PO Daily as needed for motion sickness 90 90 October 23, 2023 12:00am October 28, 2024 3:02pm Start: 10-23-2023 End: 10-28-2024 take 1 tablet by mouth every six hours as needed for dizziness Meclizine 25 mg tablet Discontinued 25 MG PO Every 6 hours as needed for dizziness October 23, 2023 12:00am October 28, 2024 3:02pm Start: 10-17-2022 take 1 tablet by avril [...] as needed for 0 days Sep, Active meloxicam 15 mg oral tablet (18 sources) Nonsteroidal Anti-inflammatory Drug Start: 10-23-2023 End: 10-23-2023 take 1 tablet by mouth once daily Meloxicam 15 mg tablet Discontinued 15 MG PO Daily October 23, 2023 12:00am October 23, 2023 2:44pm take 1 tablet by mouth once elizabeth y Meloxicam 15 MG TAKE 1 TABLET BY MOUTH EVERY DAY Oral for 30 Days Active phentermine hydrochloride 37.5 mg oral tablet (20 sources) Sympathomimetic Amine Anorectic Start: 10-23-2023 End: 10-28-2024 take 1 tablet by mouth once daily Phentermine 37.5 mg tablet Discontinued 37.5 MG PO Daily February 06, 2024 9:58am October 28, 2024 3:02pm Start: 02-14-2023 take 1 tablet by avril once daily before breakfast Adipex-P 37.5 MG 1 tablet before breakfast Orally Once a day for 30 days Rx #4 Jan, Active Start: 01-16-2023 take 1 tablet by avril once daily before breakfast Adipex-P 37.5 MG 1 tablet before breakfast Orally Once a day for 30 days Rx #4 Dec, Active Start: 12-14-2022 take 1 tablet by avril once daily before breakfast Adipex-P 37.5 MG 1 tablet before breakfast Orally Once a day for 30 days 3rd Rx 20 Nov, 2022 Active Start: 11-16-2022 take 1 tablet by avril once daily before breakfast Adipex-P 37.5 MG 1 tablet before breakfast Orally Once a day for 30 days Oct, Active Start: 10-17-2022 take 1 tablet by avril once daily before breakfast Adipex-P 37.5 MG 1 tablet before breakfast Orally Once a day for 30 days Sep, Active predniSONE 20 mg oral tablet (16 [...] the cause of diseases classified elsewhere Episodic Disorders of teeth and jaw (2 sources) Generalized gingivitis; Translations: [Chronic gingivitis, plaque induced] Onset: 10-02-2024 10-02-2024 Chronic Fracture of lower limb (5 sources) Other fracture of right lower leg, sequela; Translations: [Late effect of fracture of lower extremities] Onset: 01-19-2022 10-02-2024 Episodic Immunizations and screening for infectious disease (19 sources) Contact with and (suspected) exposure to other viral communicable diseases; Translations: [Suspected disease caused by 2019-nCoV] Onset: 10-02-2024 Episodic Joint disorders and dislocations; trauma-related (20 sources) Internal derangement of left knee; Translations: [Unspecified internal derangement of left knee] Onset: 10-02-2024 10-02-2024 Chronic Osteoarthritis (9 sources) Primary osteoarthritis, right ankle and foot; Translations: [Bilateral arthritis of ankle] Onset: 01-19-2022 10-22-2023 Chronic Other acquired deformities (1 source) Contracture, right ankle; Translations: [CONTRACTURE RIGHT ANKLE] Onset: 01-19-2022 Chronic Other acquired deformities (2 sources) Equinus contracture of the ankle; Translations: [Contracture, unspecified ankle] Onset: 10-02-2024 10-02-2024 Chronic Other congenital anomalies (1 source) Other specified congenital deformities of feet; Translations: [OTH SPEC CONGEN DEFORMITIES FEET] Onset: 01-19-2022 Chronic Other congenital anomalies (2 sources) Tarsal coalition of right foot; Translations: [Other specified congenital deformities of feet] Onset: 10-02-2024 10-02-2024 Chronic Other connective tissue disease (4 sources) Peroneal tendinitis, right leg; Translations: [PERONEAL TENDINITIS RIGHT LEG] Onset: 08-02-2022 Episodic Other connective tissue disease (2 sources) Pain in left foot; Translations: [Pain in left foot] Onset: 10-02-2024 10-02-2024 Episodic Other connective tissue disease (2 sources) Peroneal tendinitis of right lower limb; Translations: [Peroneal tendinitis, right leg] Onset: 10-02-2024 10-02-2024 Episodic Other connective tissue disease (2 sources) 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; Translations: [Plantar fascial fibromatosis] Onset: 10-02-2024 10-02-2024 Episodic Other ear and sense organ disorders (19 sources) Sensorineural hearing loss, bilateral; Translations: [Sensorineural hearing loss, bilateral] Onset: 09-22-2022 09-22-2022 Chronic Other ear and sense organ disorders (2 sources) Acute myringitis of right ear; Translations: [Acute myringitis, right ear] 10-02-2024 Episodic Other endocrine disorders (1 source) Polycystic ovarian syndrome; Translations: [POLYCYSTIC OVARIAN SYNDROME] Onset: 09-02-2021 Chronic Other endocrine disorders (2 sources) Polycystic ovary syndrome; Translations: [Polycystic ovarian syndrome] Onset: 10-02-2024 10-02-2024 Chronic Other female genital disorders (2 sources) Dysplasia of cervix; Translations: [Dysplasia of cervix uteri, unspecified] Onset: 10-02-2024 10-02-2024 Episodic Other nervous system disorders (2 sources) Chronic pain; Translations: [Other chronic pain] Onset: 10-02-2024 10-02-2024 Chronic Other nervous system disorders (2 sources) Entrapment neuropathy of lower limb; Translations: [Unspecified mononeuropathy of right lower limb] Onset: 10-02-2024 10-02-2024 Chronic Other non-traumatic joint disorders (5 sources) Other instability, right ankle; Translations: [OTHER INSTABILITY RIGHT ANKLE] Onset: 09-01-2021 Episodic Other non-traumatic joint disorders (5 sources) Pain in right ankle and joints of right foot; Translations: [PAIN IN RIGHT ANKLE] Onset: 01-19-2022 Episodic Other non-traumatic joint disorders (2 sources) Instability of joint of left ankle; Translations: [Other instability, left ankle] Onset: 10-02-2024 10-02-2024 Episodic Other non-traumatic joint disorders (2 sources) Impingement syndrome of ankle; Translations: [Other specified joint disorders, unspecified ankle and foot] Onset: 10-02-2024 10-02-2024 Episodic Other non-traumatic joint disorders (2 sources) Arthralgia of the ankle and/or foot; Translations: [Pain in right ankle and joints of right foot] Onset: 10-02-2024 10-02-2024 Episodic Other nutritional; endocrine; and metabolic disorders [...] Chronic Other nutritional; endocrine; and metabolic disorders (2 sources) Simple obesity ; Translations: [Other obesity due to excess calories] Onset: 10-02-2024 10-02-2024 Chronic Other nutritional; endocrine; and metabolic disorders (4 sources) Overweight; Translations: [Overweight] 10-23-2023 Episodic Other nutritional; endocrine; and metabolic disorders (1 source) Overweight; Translations: [Overweight] 10-23-2023 Episodic Other screening for suspected conditions (not mental disorders or infectious disease) (20 sources) Encounter for screening mammogram for malignant neoplasm of breast; Translations: [Patient encounter status] Onset: 10-14-2021 Episodic Other upper respiratory infections (2 sources) Chronic sinusitis; Translations: [Chronic sinusitis, unspecified] Onset: 10-02-2024 10-02-2024 Chronic Other upper respiratory infections (2 sources) Streptococcal sore throat; Translations: [Strep throat] Episodic Otitis media and related conditions (10 sources) Other specified disorders of Eustachian tube, bilateral; Translations: [Dysfunction of bilateral eustachian tubes] Onset: 08-25-2021 Episodic Residual codes; unclassified (1 source) Other specified postprocedural states; Translations: [OTH SPECIFIED POSTPROCEDURAL STATES] Onset: 05-17-2022 Episodic Residual codes; unclassified (2 sources) Edema of lower extremity; Translations: [Localized edema] Onset: 10-02-2024 10-02-2024 Episodic Residual codes; unclassified (2 sources) History of clinical finding in subject; Translations: [Personal history of other specified conditions] Onset: 10-02-2024 10-02-2024 Episodic Screening and history of mental health and substance abuse codes (2 sources) Patient encounter status; Translations: [Encounter for screening for depression] Onset: 10-02-2024 10-02-2024 Episodic Spondylosis; intervertebral disc disorders; other back problems (7 sources) Spondylosis without myelopathy or radiculopathy, lumbar region; Translations: [Herniation of nucleus pulposus of lumbar intervertebral disc] Onset: 02-08-2017 10-02-2024 Chronic Sprains and strains (14 sources) Strain of muscle(s) and tendon(s) of [...] for malignant neoplasm of colon] Onset: 12-16-2022 Viral infection (2 sources) Disease caused by 2019-nCoV; Translations: [COVID-19] Onset: 10-02-2024 10-02-2024 Episodic Past or Other Problems Problem Classification Problem Date Documented Da te Episodic/Chronic Other aftercare (1 source) Other exterminator termite (current) drug therapy; Translations: [OTH SEARCH ANALYST CURRENT DRUG THERAPY] Onset: 09-02-2021 Episodic Other connective tissue disease (1 source) Pain in right foot; Translations: [PAIN IN RIGHT FOOT] Onset: 01-19-2022 Episodic Other connective tissue disease (1 source) Plantar fascial fibromatosis; Translations: [PLANTAR FASCIAL FIBROMATOSIS] Onset: 01-19-2022 Episodic Other ear and sense organ disorders (1 source) Other specified disorders of ear, bilateral; Translations: [OTHER SPECIFIED DISORDERS EAR RAPHAEL] Onset: 09-02-2021 Episodic Other ear and sense organ disorders (1 source) Otalgia, bilateral; Translations: [OTALGIA BILATERAL] Onset: 09-02-2021 Episodic Other non-traumatic joint disorders (1 source) Other specified joint disorders, right ankle and foot; Translations: [OTHER SPEC JOINT D/O RT ANKLE FOOT] Onset: 01-19-2022 Episodic Residual codes; unclassified (1 source) Acquired absence of both cervix and uterus; Translations: [ACQUIRED ABSENCE BOTH CERVIX AND UTERUS] Onset: 01-19-2022 Episodic Spondylosis; intervertebral disc disorders; other back problems (2 sources) Disorder of sacrum; Translations: [Sacrococcygeal disorders, not elsewhere classified] Onset: 05-31-2017 10-02-2024 Episodic Results Test Name Value Interpretation Reference Range Facility Basophils Auto (Bld) [#/Vol] on 10-24-2023 Basophils (Bld) [#/Vol] 0.1 10 3/uL 0.0-0.1 [facility] Basophils/100 WBC Auto (Bld) on 10-24-2023 Basophils/100 WBC (Bld) 0.8 % 0.2-2.0 [facility] Cholesterol in LDL Calc [Mas s/Vol]on 10-24-2023 Cholesterol in LDL [Mass/Vol] 99.6 mg/dL [facility] Comment on above: <100 mg/dl [id number] 0-129 mg/dl NEAR OR ABOVE [id number] mg/dl BORDERLINE [id number] mg/dl HIGH>190 mg/dl VERY HIGH Cholesterol in VLDL Calc [Ma ss/Vol]on 10-24-2023 Cholesterol in VLDL [Mass/Vol] 21.4 mg/dL [facility] Eosinophils/100 WBC Auto (Bl d)on 10-24-2023 Eosinophils/100 WBC (Bld) 0.6 % Low 0.9-7.0 [facility] Erythrocyte distribution wid th Auto (RBC) [Ratio]on 10-24-2023 Erythrocyte distribution width (RBC) [Ratio] 13.7 % 11.0-15.0 [facility] Estimated glomerular filtrat ion rate (GFR) non- Americanon 10-24-2023 GFR/1.73 sq M.predicted among non-blacks MDRD (S/P/Bld) [Vol rate/Area] mL/min/{1.73_m2} >=60 [facility] Globulin Calc (S) [Mass/Vol] on 10-24-2023 Globulin (S) [Mass/Vol] 3.1 g/dL [facility] Hematocrit Auto (Bld) [Volum e fraction]on 10-24-2023 Hematocrit (Bld) [Volume fraction] 38.8 % 36.0-48.0 [facility] Hemoglobin [Mass/volume] in Bloodon 10-24-2023 Hemoglobin (Bld) [Mass/Vol] 12.8 g/dL 12.0-16.0 [facility] Laboratory - Chemistry and C hemistry - challengeon 10-24-2023 Albumin [Mass/Vol] 3.3 g/dL Low 3.4-5.0 [facility] ALP [Catalytic activity/Vol] 95 U/L 46-116 [facility] ALT [Catalytic activity/Vol] 32 U/L 14-59 [facility] AST [Catalytic activity/Vol] 17 U/L 15-37 [facility] Bilirubin [Mass/Vol] 0.3 mg/dL 0.2-1.0 [facility] Calcium [Mass/Vol] 8.7 mg/dL 8.5-10.1 [facility] Chloride [Moles/Vol] 104 mmol/L 98-107 [facility] Cholesterol [Mass/Vol] 165 mg/dL <=200 [facility] Cholesterol in HDL [Mass/Vol] 44 mg/dL 40-60 [facility] Comment on above: > or =60 mg/dl - LOW CARDIOVASCULAR RISK<40 mg/dl - HIGH CARDIOVASCULAR RISK CO2 [Moles/Vol] 26.2 mmol/L 21.0-32.0 [facility] Creatinine [Mass/Vol] 0.57 mg/dL 0.55-1.02 [facility] GFR/1.73 sq M.predicted MDRD (S/P/Bld) [Vol rate/Area] mL/min/{1.73_m2} >=60 [facility] Glucose [Mass/Vol] 90 mg/dL 74-106 [facility] Potassium [Moles/Vol] 3.9 mmol/L 3.5-5.1 [facility] Protein [Mass/Vol] 6.4 g/dL 6.4-8.2 [facility] Sodium [Moles/Vol] 136 mmol/L 136-145 [facility] Triglyceride [Mass/Vol] 107 mg/dL <=150 [facility] TSH Qn 0.405 m[IU]/L 0.358-3.740 [facility] Urea nitrogen [Mass/Vol] 18.0 mg/dL 7.0-18.0 [facility] Urea nitrogen/Creatinine [Mass ratio] 31.6 mg/mg [facility] Laboratory - Hematology and Cell countson 10-24-2023 Immature granulocytes/100 WBC (Bld) 0.3 % 0.0-0.5 [facility] Leukocytes [#/volume] correc dwayne for nucleated erythrocytes in Blood by Automated counon 10-24-2023 WBC corrected for nucl RBC Auto (Bld) [#/Vol] 9.1 10 3/uL 4.0-11.0 [facility] Lymphocytes Auto (Bld) [#/Vo l]on 10-24-2023 Lymphocytes (Bld) [#/Vol] 3.7 10 3/uL 1.2-3.8 [facility] Lymphocytes/100 WBC Auto (Bl d)on 10-24-2023 Lymphocytes/100 WBC (Bld) 40.7 % 20.5-60.0 [facility] MCH Auto (RBC) [Entitic mass ]on 10-24-2023 MCH (RBC) [Entitic mass] 27.8 pg 26.7-34.0 [facility] MCHC Auto (RBC) [Mass/Vol]on 10-24-2023 MCHC (RBC) [Mass/Vol] 33.0 g/dL 29.9-35.2 [facility] MCV Auto (RBC) [Entitic vol] on 10-24-2023 MCV (RBC) [Entitic vol] 84.2 fL 81.0-99.0 [facility] Monocytes Auto (Bld) [#/Vol] on 10-24-2023 Monocytes (Bld) [#/Vol] 0.8 10 3/uL 0.3-0.8 [facility] Monocytes/100 WBC Auto (Bld) on 10-24-2023 Monocytes/100 WBC (Bld) 8.9 % 1.7-12.0 [facility] Neutrophils Auto (Bld) [#/Vo l]on 10-24-2023 Neutrophils (Bld) [#/Vol] 4.4 10 3/uL 1.4-6.5 [facility] Neutrophils/100 WBC Auto (Bl d)on 10-24-2023 Neutrophils/100 WBC (Bld) 48.7 % 43.0-75.0 [facility] No Panel Informationon 10-23 Eosinophils # (Auto) 0.1 10 3/uL 0.0-0.7 [facility] Immature Granulocyte # (Auto) 0.03 10 3/uL 0.00-0.03 [facility] Platelet mean volume Auto (B ld) [Entitic vol]on 10-24-2023 Platelet mean volume (Bld) [Entitic vol] 10.6 fL 9.5-13.5 [facility] Platelets Auto (Bld) [#/Vol] on 10-24-2023 Platelets (Bld) [#/Vol] 274 10 3/uL 150-450 [facility] RBC Auto (Bld) [#/Vol]on RBC (Bld) [#/Vol] 4.61 10 6/uL 4.20-5.40 [facility] Serum or plasma albumin/glob ulin mass ratioon 10-24-2023 Albumin/Globulin [Mass ratio] 1.1 {ratio} [facility] Serum or plasma anion gap de terminationon 10-24-2023 Anion gap [Moles/Vol] 9.7 mmol/L [facility] Serum or plasma total choles terol/high density lipoprotein (HDL) cholesterol mass lul 10-24-2023 Cholesterol.total/Ch olesterol in HDL [Mass ratio] 3.8 {ratio} [facility] Comment on above: 3.3 - 4.4 LOW RISK4. 4 - 7.1 AVERAGE RISK7.1 - 11.0 MODERATE RISK>11.0 HIGH RISK Jaspreet 12-16-2022 L Specimen: [id number] Received: 12/16/22 Status: EVELIO Mame Num: [id number] Spec Type: Surgical Subm Dr: Imelda Rodriguez MD Tissues: A Colon Biopsy (SIGMOID POLYP) B Colon Biopsy (RECTAL POLYP) Procedures: HE/4, Gross/Micro L4/2 Age/ Patient Sex Location Account Attending Physician Lisa Campuzano 57/F [id number] Imelda Rodriguez MD SPEC NUM: [id number] RECD: 12/16/22 STATUS: EVELIO MAME NUM: [id number] DANA: 12/16/22- [facility] DR: Imelda Rodriguez MD ENTERED: 12/16/[address] [facility] [address]: SPEC TYPE: Surgical DEPT: S [...] submitted in one cassette labeled B1. Specimen: [id number] Received: 12/16/22 Status: EVELIO Coronagabriel Num: [id number] Spec Type: Surgical Subm Dr: Imelda Rodriguez MD Tissues: A Colon Biopsy (SIGMOID POLYP) B Colon Biopsy (RECTAL POLYP) Procedures: RABIAGal, Gross/Micro L4/2 Patient: Lisa Campuzano [id number] (Continued) Specimen: [id number] Received: 12/16/22 (Continued) Signed (signatur e on file) Ayla Chowdhury MD 12/19/22 1322 Specimen: [id number] Received: 12/16/22 Status: EVELIO Vilchis Num: [id number] Spec Type: Surgical Subm Dr: Imelda Rodriguez MD Tissues: A Colon Biopsy (SIGMOID POLYP) B Colon Biopsy (RECTAL POLYP) Procedures: RABIA/Clementina Santo/Terence L4/2 Patient: JustenLisa [id number] (Continued) Specimen: [id number] Received: 12/16/22 (Continued) Microscopic Description A. Two H E slides reviewed. The microscopic examination confirms the diagnosis. B. Two H E slides reviewed. The microscopic examination confirms the diagnosis. CPT Codes 03553o2 Specimen: [id number] Received: 12/16/22 Status: EVELIO Vilchis Num: [id number] Spec Type: Surgical Subm Dr: Imelda Rodriguez MD Tissues: A Colon Biopsy (SIGMOID POLYP) B Colon Biopsy (RECTAL POLYP) Procedures: RABIA/Gal, Clementina/Terence L4/2 Patient: Lisa Campuzano [id number] (Continued) Signed (signatur e on file) Ayla Chowdhury MD 12/19/22 1322 [facility] MRI ANKLE RT WO CONon 2022 MRI [...] 12: (more content not included)... Normal [facility] COVID/FLU RT-PCRon SARS-CoV-2 (COVID-19) RNA LISBETH+probe Ql (Unsp spec) Negative [employer] Other COVID/FLU RT-PCR Negative [employer] Other Quick Strepon 02-19-2022 S. pyogenes Org specific cx Ql (Throat) Negative [employer] Other Quick Strep [employer] Other POINT OF CARE GLUCOSEon 12-25 Glucose [Mass/Vol] 103 mg/dL Normal 74-106 [facility] Comment on above: Performed By: #### P OCGLUC ####[facility] [id number] [id number]. Sade Chowdhury Glucose [Mass/Vol] 85 mg/dL Normal 74-106 [facility] Comment on above: Performed By: #### P OCGLUC ####[facility] [address] [address]Dr. Sade Chowdhury XR ANKLE RT 2Von 01-03-2022 XR ANKLE RT 2V EXAM: XR ANKLE RT 2V HISTORY: Pain COMPARISON: None. TECHNIQUE: 5 fluoroscopic images FINDINGS: 5 fluoroscopic images demonstrate a surgical metallic pointer projected over the hindfoot IMPRESSION: Fluoroscopic images of the hindfoot Electronically authenticated by: SIN MARCUS Date: 2022-01-03 16:06 Normal [facility] Covid-19 PCR (CVDTBH)on SARS-CoV-2 (COVID-19) RNA LISBETH+probe Ql (Unsp spec) Not detected Normal NOT DETECTED [facility] Comment on above: Result Comment: This test is not yet approved or cleared by the [place] FDA. When there are no FDA-approved or cleared tests available, and other criteria are met, FDA can make tests available under an emergency access mechanism called an Emergency Use Authorization (EUA). The EUA for this test is supported by the [employer] Mechanic of Health and Human Service's (HHS's) declaration [...] consistent with SARS-CoV-2. Performed By: #### [facility] ####[facility] [address] [place], [place] [address]Dr. Sade Trenton CBC AUTO DIFFon 10-14-2021 BASO # 0.0 103/ul Normal 0.0-0.1 [facility] Comment on above: Performed By: #### C BC ####[facility] [address] [place], [place] [address]Dr. Jessicalex Chowdhury Basophils/100 WBC (Bld) 0.5 % Normal 0.2-2.0 [facility] Comment on above: Performed By: #### C BC ####[facility] [address] [place], [place] [address]Dr. Sade Chowdhury EO # 0.0 103/ul Normal 0.0-0.7 [facility] Comment on above: Performed By: #### C BC ####[facility] [address] [place], [place] [address]Dr. Jessicalex Chowdhury Eosinophils/100 WBC (Bld) 0.4 % Critically low 0.9-7.0 [facility] Comment on above: Performed By: #### C BC ####[facility] [address] [place], [place] [address]Dr. Jessicalex Chowdhury Erythrocyte distribution width (RBC) [Ratio] 13.6 % Normal 11.0-15.0 [facility] Comment on above: Performed By: #### C BC ####[facility] [address] [address]Dr. Sade Chowdhury Hematocrit (Bld) [Volume fraction] 39.6 % Normal 36.0-48.0 [facility] Comment on above: Performed By: #### C BC ####[facility] [address] [address]Dr. aSde Chowdhury Hemoglobin (Bld) [Mass/Vol] 13.2 g/dL Normal 12.0-16.0 [facility] Comment on above: Performed By: #### C BC ####[facility] [address] [address]Dr. Sade Chowdhury IG # 0.03 10e3/ul Normal 0.00-0.03 [facility] Comment on above: Performed By: #### C BC ####[facility] [address] [address]Dr. Sade Chowdhury IG % 0.4 % Normal 0.0-0.5 [facility] Comment on above: Performed By: #### C BC ####[facility] [address] [address]Dr. Jessicalex Chowdhury LYMPH # 2.9 103/ul Normal 1.2-3.8 [facility] Comment on above: Performed By: #### C BC ####[facility] [address] [address]Dr. Sade Chowdhury Lymphocytes/100 WBC (Bld) 39.6 % Normal 20.5-60.0 [facility] Comment on above: Performed By: #### C BC ####[facility] [address] [address]Dr. Jessicalex Chowdhury MANUAL DIFF REQ NO Normal [facility] Comment on above: Performed By: #### C BC ####[facility] [address] [place], [place] [address]Dr. Sade Chowdhury MCH (RBC) [Entitic mass] 28.4 pg Normal 26.7-34.0 [facility] Comment on above: Performed By: #### C BC ####[facility] [address] [place] [address] [id number]. Sade Chowdhury MCHC (RBC) [Mass/Vol] 33.3 g/dL Normal 29.9-35.2 [facility] Comment on above: Performed By: #### C BC ####[facility] [address] [place] [address]Dr. Sade Chowdhury MCV (RBC) [Entitic vol] 85.3 fL Normal 81.0-99.0 [facility] Comment on above: Performed By: #### C BC ####[facility] [address] [place], [place] [address]Dr. Sade Chowdhury MONO # 0.7 103/ul Normal 0.3-0.8 [facility] Comment on above: Performed By: #### C BC ####[facility] [address] [place], [place] [address]Dr. Sade Chowdhury Monocytes/100 WBC (Bld) 9.5 % Normal 1.7-12.0 [facility] Comment on above: Performed By: #### C BC ####[facility] [address] [place], [place] [address]Dr. Sade Chowdhury NEUT # 3.6 103/ul Normal 1.4-6.5 [facility] Comment on above: Performed By: #### C BC ####[facility] [address] [place], [place] [address]Dr. Sade Chowdhury Neutrophils/100 WBC (Bld) 49.6 % Normal 43.0-75.0 [facility] Comment on above: Performed By: #### C BC ####[facility] [address] [place], [place] [address]Dr. Sade Chowdhury Platelet mean volume (Bld) [Entitic vol] 10.3 fL Normal 9.5-13.5 [facility] Comment on above: Performed By: #### C BC ####[facility] [address] [place], [place] [address]Dr. Sdae Trenton PLT 270 103/ul Normal 150-450 [facility] Comment on above: Performed By: #### C BC ####[facility] [address] [place], [place] [address]Do. Sade Chowdhury RBC 4.64 106/ul Normal 4.20-5.40 [facility] Comment on above: Performed By: #### C BC ####[facility] [address] [place], [place] [address]CiVilma Chowdhury WBC 7.3 103/ul Normal 4.0-11.0 [facility] Comment on above: Performed By: #### C BC ####[facility] [address] [place], [place] [address]RyVilma Chowdhury LIPID PROFILEon 10-14-2021 CHOL-HDL RATIO NORM SEE BELOW Normal [facility] Comment on above: Result Comment: 3.3 - 4.4 LOW RISK 4.4 - 7.1 AVERAGE RISK 7.1 - 11.0 MODERATE RISK >11.0 HIGH RISK Performed By: #### T SH, LIPID, CMP #### [facility] [address] [address] [address] Sade Chowdhury Cholesterol [Mass/Vol] 150 mg/dL Normal <=200 [facility] Comment on above: Performed By: #### T SH, LIPID, CMP #### [facility] [address] [address] [address] Sade Chowdhury Cholesterol in HDL [Mass/Vol] 33 mg/dL Critically low 40-60 [facility] Comment on above: Performed By: #### T SH, LIPID, CMP #### [facility] [address] [address] [address] Sade Chowdhury Cholesterol in LDL [Mass/Vol] 98.4 mg/dL Normal [facility] Comment on above: Performed By: #### T SH, LIPID, CMP #### [facility] [address] [address] [address] Sade Chowdhury Cholesterol.total/Ch olesterol in HDL [Mass ratio] 4.5 {ratio} Normal [facility] Comment on above: Performed By: #### T SH, LIPID, CMP #### [facility] [address] [address] [address] Sade Chowdhury HDL NORMAL > or = 60 mg/dl - LOW CARDIOVASCULAR RISK <40 mg/dl - HIGH CARDIOVASCULAR RISK Normal [facility] Comment on above: Performed By: #### T SH, LIPID, CMP #### [facility] [address] [place], [place] [address] Dr. Sade Chowdhury LDL CALC NORMAL SEE BELOW Normal [facility] Comment on above: Result Comment: <100 mg/dl OPTIMAL 100 - 129 mg/dl NEAR OR ABOVE OPTIMAL 130 - 159 mg/dl BORDERLINE HIGH 160 - 189 mg/dl HIGH >190 mg/dl VERY HIGH Performed By: #### T SH, LIPID, CMP #### [facility] [address] [place], [place] [address] Dr. Sade Chowdhury Triglyceride [Mass/Vol] 93 mg/dL Normal <=150 [facility] Comment on above: Performed By: #### T SH, LIPID, CMP #### [facility] [address] [place], [place] [address] Dr. Sade Chowdhury VLDL CALC 18.6 mg/dL Normal [facility] Comment on above: Performed By: #### T SH, LIPID, CMP #### [facility] [address] [place], [place] [address] Dr. Sade Chowdhury MG MAMM SCREEN 3D RAPHAEL CADon 10-14-2021 MG MAMM SCREEN 3D RAPHAEL CAD Patient: LISA CAMPUZANO Exam Date: 10/14/2021 : 1965 Gender:F Ordering : DR TOMAS PFEIFFER D.O. Admission #: [id number] Family : Order #: [id number] CLICK HERE TO VIEW EXAM RADIOLOGY REPORT PROCEDURE: MAMMOGRAM SCREENING 3D BILATERAL CAD COMPARISON: MG MAMM SCREEN 3D RAPHAEL CAD, 10/13/2020. MG MAMM SCREEN RAPHAEL W CAD, 10/10/2019. INDICATIONS: Screening mammography Calculator Name NCI Breast Cancer Risk Assessment Tool 5 Year Breast Cancer Risk 0.80% Lifetime Breast Cancer Risk 5.30% Personal Breast Cancer No Personal Ovarian Cancer No Treatments None Family Cancers None LOCATION: [facility] BREAST COMPOSITION: Scattered areas fibroglandular density. [...] Leyva M.D. on 10/15/2021 at 11:47 Normal [facility] PROF 14(COMP METB)on 022 Albumin [Mass/Vol] 3.5 g/dL Normal 3.4-5.0 [facility] Comment on above: Performed By: #### T SH, LIPID, CMP #### [facility] [address] [place] [address] Dr. Sade Chowdhury Albumin/Globulin [Mass ratio] 1.0 {ratio} Normal [facility] Comment on above: Performed By: #### T SH, LIPID, CMP #### [facility] [address] [place] [address] Dr. Sade Chowdhury ALP [Catalytic activity/Vol] 90 U/L Normal 46-116 [facility] Comment on above: Performed By: #### T SH, LIPID, CMP #### [facility] [address] [place] [address] Dr. Sade Chowdhury ALT [Catalytic activity/Vol] 45 U/L Normal 14-59 [facility] Comment on above: Performed By: #### T SH, LIPID, CMP #### [facility] [address] [address] [address] Sade Chowdhury Anion gap [Moles/Vol] 13.6 mmol/L Normal [facility] Comment on above: Performed By: #### T SH, LIPID, CMP #### [facility] [address] [place] [address] Dr. Sade Chowdhury AST [Catalytic activity/Vol] 26 U/L Normal 15-37 [facility] Comment on above: Performed By: #### T SH, LIPID, CMP #### [facility] [address] [place] [address] Dr. Sade Chowhdury Bilirubin [Mass/Vol] 0.3 mg/dL Normal 0.2-1.0 [facility] Comment on above: Performed By: #### T SH, LIPID, CMP #### [facility] [address] [place] [address] Dr. Sade Chowdhury Calcium [Mass/Vol] 8.9 mg/dL Normal 8.5-10.1 [facility] Comment on above: Performed By: #### T SH, LIPID, CMP #### [facility] [address] [place] [address] Dr. Sade Chowdhury Chloride [Moles/Vol] 106 mmol/L Normal 98-107 [facility] Comment on above: Performed By: #### T JOVANY, LIPID, CMP #### [facility] [address] [place] [address] Dr. Sade Chowdhury CO2 [Moles/Vol] 23.9 mmol/L Normal 21.0-32.0 [facility] Comment on above: Performed By: #### T SH, LIPID, CMP #### [facility] [address] [place] [address] Dr. Sade Chowdhury Creatinine [Mass/Vol] 0.67 mg/dL Normal 0.55-1.02 [facility] Comment on above: Performed By: #### T JOVANY, LIPID, CMP #### [facility] [address] [place] [address] Dr. Sade Chowdhury EGFR-AF SWISS >60 Normal >=60 [facility] Comment on above: Performed By: #### T SH, LIPID, CMP #### [facility] [address] [place] [address] Dr. Sade Chowdhury EGFR-NON AF SWISS >60 Normal >=60 [facility] Comment on above: Performed By: #### T SH, LIPID, CMP #### [facility] [address] [place] [address] Dr. Sade Chowdhury Globulin (S) [Mass/Vol] 3.5 g/dL Normal [facility] Comment on above: Performed By: #### T SH, LIPID, CMP #### [facility] [address] [place] [address] Dr. Sade Chowdhury Glucose [Mass/Vol] 101 mg/dL Normal 74-[address] [facility] Comment on above: Performed By: #### T JOVANY LIPID, CMP #### [facility] [address] [address] [address] Sade Chowdhury Potassium [Moles/Vol] 4.5 mmol/L Normal 3.5-5.1 [facility] Comment on above: Performed By: #### T JOVANY LIPID, CMP #### [facility] [address] [address] [address] Sade Chowdhury Protein [Mass/Vol] 7.0 g/dL Normal 6.4-8.[address] [facility] Comment on above: Performed By: #### T JOVANY LIPID, CMP #### [facility] [address] [place] [address] Dr. Sade Chowdhury Sodium [Moles/Vol] 139 mmol/L Normal 136-145 [facility] Comment on above: Performed By: #### T JOVANY LIPID, CMP #### [facility] [address] [place] [address] Dr. Sade Chowdhury Urea nitrogen [Mass/Vol] 19.0 mg/dL Critically high 7.0-18.0 [facility] Comment on above: Performed By: #### T JOVANY LIPID, CMP #### [facility] [address] [place] [address] Dr. Sade Chowdhury Urea nitrogen/Creatinine [Mass ratio] 28.4 mg/mg Normal [facility] Comment on above: Performed By: #### T JOVANY LIPID, CMP #### [facility] [address] [place] [address] Dr. Sade Chowdhury TSHon 10-14-2021 TSH 4.514 uIU/mL Critically high 0.358-3.[address] [facility] Comment on above: Performed By: #### T JOVANY LIPID, CMP #### [facility] [address] [place] [address] Dr. Sade Chowdhury MRI ANKLE RT WO [...] ANIKA LOCKWOOD Date: 2021-09-02 14:30 Normal [facility] CBC AUTO DIFFon 08-19-2021 BASO # 0.1 103/ul Normal 0.0-0.1 [facility] Comment on above: Performed By: #### C BC #### [facility] [address] [address] [address] Sade Chowdhury Basophils/100 WBC (Bld) 0.6 % Normal 0.2-2.0 [facility] Comment on above: Performed By: #### C BC #### [facility] [address] [address] [address] Sade Chowdhury EO # 0.0 103/ul Normal 0.0-0.7 [facility] Comment on above: Performed By: #### C BC #### [facility] [address] [place] [address] Dr. Sade Chowdhury Eosinophils/100 WBC (Bld) 0.4 % Critically low 0.9-7.0 [facility] Comment on above: Performed By: #### C BC #### [facility] [address] [place] [address] Dr. Sade Chowdhury Erythrocyte distribution width (RBC) [Ratio] 13.8 % Normal 11.0-15.0 [facility] Comment on above: Performed By: #### C BC #### [facility] [address] [place] [address] Dr. Sade Chowdhury Hematocrit (Bld) [Volume fraction] 41.3 % Normal 36.0-48.0 [facility] Comment on above: Performed By: #### C BC #### [facility] [address] [place] [address] Dr. Sade Chowdhury Hemoglobin (Bld) [Mass/Vol] 13.3 g/dL Normal 12.0-16.0 [facility] Comment on above: Performed By: #### C BC #### [facility] [address] [place] [address] Dr. Sade Chowdhury IG # 0.03 10e3/ul Normal 0.00-0.03 [facility] Comment on above: Performed By: #### C BC #### [facility] [address] [place] [address] Dr. Sade Chowdhury IG % 0.4 % Normal 0.0-0.5 [facility] Comment on above: Performed By: #### C BC #### [facility] [address] [place] [address] Dr. Sade Chowdhury LYMPH # 3.1 103/ul Normal 1.2-3.8 [facility] Comment on above: Performed By: #### C BC #### [facility] [address] [place] [address] Dr. Sade Chowdhury Lymphocytes/100 WBC (Bld) 38.9 % Normal 20.5-60.0 [facility] Comment on above: Performed By: #### C BC #### [facility] [address] [place] [address] Dr. Sade Chowdhury MANUAL DIFF REQ NO Normal [facility] Comment on above: Performed By: #### C BC #### [facility] [address] [place] [address] Dr. Sade Chowdhury MCH (RBC) [Entitic mass] 28.1 pg Normal 26.7-34.0 [facility] Comment on above: Performed By: #### C BC #### [facility] [address] [place] [address] Dr. Sade Chowdhury MCHC (RBC) [Mass/Vol] 32.2 g/dL Normal 29.9-35.2 [facility] Comment on above: Performed By: #### C BC #### [facility] [address] [place] [address] Dr. Sade Chowdhury MCV (RBC) [Entitic vol] 87.3 fL Normal 81.0-99.0 [facility] Comment on above: Performed By: #### C BC #### [facility] [address] [place] [address] Dr. Sade Chowdhury MONO # 0.8 103/ul Normal 0.3-0.8 [facility] Comment on above: Performed By: #### C BC #### [facility] [address] [place] [address] Dr. Sade Chowdhury Monocytes/100 WBC (Bld) 9.4 % Normal 1.7-12.0 [facility] Comment on above: Performed By: #### C BC #### [facility] [address] [place] [address] Dr. Sade Chowdhury NEUT # 4.0 103/ul Normal 1.4-6.5 [facility] Comment on above: Performed By: #### C BC #### [facility] [address] [address] [address] Sade Chowdhury Neutrophils/100 WBC (Bld) 50.3 % Normal 43.0-75.0 [facility] Comment on above: Performed By: #### C BC #### [facility] [address] [address] [address] Sade Chowdhury Platelet mean volume (Bld) [Entitic vol] 9.8 fL Normal 9.5-13.5 [facility] Comment on above: Performed By: #### C BC #### [facility] [address] [address] [address] Sade Chowdhury PLT 309 103/ul Normal 150-450 [facility] Comment on above: Performed By: #### C BC #### [facility] [address] [place] [address] Dr. Sade Chowdhury RBC 4.73 106/ul Normal 4.20-5.40 [facility] Comment on above: Performed By: #### C BC #### [facility] [address] [place] [address] Dr. Sade Chowdhury WBC 7.9 103/ul Normal 4.0-11.0 [facility] Comment on above: Performed By: #### C BC #### [facility] [address] [place] [address] Dr. Sade Chowdhury Vital Signs Date Time Vital Sign Value Performing Clinician Facility 10-28-2024 15: Body height 157.48 cm [employer] DO Work Phone: [facility] 10-28-2024 15:10040 Body mass index (BMI) [Ratio] 33.1 kg/m2 Tomas [employer] DO Work Phone: [facility] 10-28-2024 15: Body weight 82.21 kg Tomas [employer] DO Work Phone: [facility] 10-28-2024 15:10040 Diastolic blood pressure 76 mm[Hg] Tomas [employer] DO Work Phone: [facility] 10-28-2024 15:10-0400 Heart rate 58 /min Tomas Ball DO Work Phone: [facility] 10-28-2024 15:10-0400 Respiratory rate 12 /min Tomas Ball DO Work Phone: [facility] 10-28-2024 15:10-0400 Systolic blood pressure 119 mm[Hg] Tomas Ball DO Work Phone: [facility] 10-02-2024 15:26-0400 Body height 160 cm Lucia Holliday MD Work Phone: [facility] 10-02-2024 15:26-0400 Body mass index (BMI) [Ratio] 32.24 kg/m2 Lucia Holliday MD Work Phone: [facility] 10-02-2024 15:26-0400 Body weight 82.56 kg Lucia Holliday MD Work Phone: [facility] 10-02-2024 15:26-0400 Diastolic blood pressure 70 mm[Hg] Lucia Holliday MD Work Phone: [facility] 10-02-2024 15:26-0400 Heart rate 68 /min Lucia Holliday MD Work Phone: [facility] 10-02-2024 15:26-0400 Systolic blood pressure 104 mm[Hg] Lucia Holliday MD Work Phone: [facility] 10-23-2023 14:45-0400 Body height 160.02 cm [facility] 10-23-2023 14:45-0400 Body mass index (BMI) [Ratio] 29.1 kg/m2 [facility] 10-23-2023 14:45-0400 Body weight 74.61 kg [facility] 10-23-2023 14:45-0400 Diastolic blood pressure 64 mm[Hg] [facility] 10-23-2023 14:45-0400 Heart rate 64 /min [facility] 10-23-2023 14:45-0400 Respiratory rate 12 /min [facility] 10-23-2023 14:45-0400 Systolic blood pressure 99 mm[Hg] [facility] 02-14-2023 13:11-0500 Body height 160.02 cm Tomas Ball Other [employer] Other 02-14-2023 13:11-0500 Body mass index (BMI) [Ratio] 27.06 kg/m2 Tomas Ball Other [employer] Other 02-14-2023 13:11-0500 Body weight 69.31 kg Tomas Ball Other [employer] Other 02-14-2023 13:11-0500 Diastolic blood pressure 75 mm[Hg] Tomas Ball Other [employer] Other 02-14-2023 13:11-0500 Systolic blood pressure 117 mm[Hg] Tomas Ball Other [employer] Other 01-16-2023 14:24-0400 Body height 160.02 cm Tomas Ball Other [employer] Other 01-16-2023 14:24-0400 Body mass index (BMI) [Ratio] 28.2 kg/m2 Tomas Ball Other [employer] Other 01-16-2023 14:24-0400 Body weight 72.21 kg Tomas Ball Other [employer] Other 01-16-2023 14:24-0400 Diastolic blood pressure 70 mm[Hg] Tomas Ball Other [employer] Other 01-16-2023 14:24-0400 Respiratory rate 12 /min Tomas Ball Other [employer] Other 01-16-2023 14:24-0400 Systolic blood pressure 112 mm[Hg] Tomas Ball Other [employer] Other 12-14-2022 14:45-0400 Body height 160.02 cm Tomas Ball Other [employer] Other 12-14-2022 14:45-0400 Body mass index (BMI) [Ratio] 29.23 kg/m2 Tomas Ball Other [employer] Other 12-14-2022 14:45-0400 Body weight 74.84 kg Tomas Ball Other [employer] Other 12-14-2022 14:45-0400 Diastolic blood pressure 78 mm[Hg] Tomas Ball Other [employer] Other 12-14-2022 14:45-0400 Respiratory rate 12 /min Tomas Ball Other [employer] Other 12-14-2022 14:45-0400 Systolic blood pressure 115 mm[Hg] Tomas Ball Other [employer] Other 11-16-2022 14:30-0400 Body height 160.02 cm Tomas Ball Other [employer] Other 11-16-2022 14:30-0400 Body mass index (BMI) [Ratio] 30.68 kg/m2 Tomas Ball Other [employer] Other 11-16-2022 14:30-0400 Body weight 78.56 kg Tomas Ball Other [employer] Other 11-16-2022 14:30-0400 Diastolic blood pressure 73 mm[Hg] Tomas Ball Other [employer] Other 11-16-2022 14:30-0400 Respiratory rate 12 /min Tomas Pfeiffer Other [employer] Other 11-16-2022 14:30-0400 Systolic blood pressure 113 mm[Hg] Tomas Ball Other [employer] Other 02-19-2022 10:55-0500 Body height 160.02 cm Aleena Mariola Other [employer] Other 02-19-2022 10:55-0500 Body mass index (BMI) [Ratio] 31.88 kg/m2 Aleena Mariola Other [employer] Other 02-19-2022 10:55-0500 Body temperature 98.3 [degF] Aleena Mariola Other [employer] Other 02-19-2022 10:55-0500 Body weight 81.65 kg Aleena Mariola Other [employer] Other 02-19-2022 10:55-0500 Diastolic blood pressure 77 mm[Hg] Aleena Mariola Other [employer] Other 02-19-2022 10:55-0500 Respiratory rate 18 /min Aleena Mariola Other [employer] Other 02-19-2022 10:55-0500 SaO2% (BldA) [Mass fraction] 97 % Aleena Mariola Other [employer] Other 02-19-2022 10:55-0500 Systolic blood pressure 117 mm[Hg] Aleena Mariola Other [employer] Other Encounters Encounter Date Encounter Type Care Provider Facility Start: 10-28-2024 End: 10-28-2024 ambulatory Tomas Pfeiffer DO Work Phone: [facility] Work Phone: Start: 10-28-2024 End: 10-28-2024 Patient encounter procedure Tomas Pfeiffer DO -[facility] Work Phone: Start: 10-28-2024 End: 10-28-2024 Patient encounter status Tomas Pfeiffer DO [facility] Start: 10-02-2024 End: 10-02-2024 Office outpatient visit 25 minutes Lucia Holliday MD Work Phone: [facility] Comment on above: Dysfunction of both eustachian tubes (Primary Dx); Acute myringitis of ear, right Start: 10-02-2024 End: 10-02-2024 ambulatory LUCIA HOLLIDAY Not Available Start: 10-02-2024 End: 10-02-2024 Bamboo flowsheet Lucia Holliday MD Work Phone: [facility] Start: 10-02-2024 End: 10-02-2024 Bamboo flowsamado Holliday MD Work Phone: [facility] Start: 12-22-2023 End: 12-22-2023 ambulatory [facility] Work Phone: Start: 12-22-2023 End: 12-22-2023 Patient encounter procedure On License Of [facility] Physician [facility] Work Phone: Start: 10-24-2023 Non-patient / Non-visit On License Of [facility] Physician [facility] Work Phone: Start: 10-23-2023 End: 10-23-2023 ambulatory [facility] Work Phone: Start: 10-23-2023 End: 10-23-2023 Encounter for general adult medical examination without abnormal findings [facility] Start: 10-23-2023 End: 10-23-2023 Patient encounter procedure On License Of [facility] Physician [facility] Work Phone: Start: 05-01-2023 End: 05-01-2023 ambulatory Tomas Ball Other [employer] Other Start: 05-01-2023 Telephone encounter Tomas Ball [facility] Start: 04-28-2023 End: 04-28-2023 ambulatory Tomas Ball Other [employer] Other Start: 04-28-2023 Telephone encounter Tomas Ball [facility] Start: 04-27-2023 End: 04-27-2023 ambulatory Tomas Ball Other [employer] Other Start: 04-27-2023 Telephone encounter Tomas Ball [facility] Start: 03-06-2023 End: 03-06-2023 ambulatory Tomas Ball Other [employer] Other Start: 03-06-2023 Telephone encounter Tomas Ball [facility] Start: 02-28-2023 End: 02-28-2023 ambulatory Tomas Ball Other [employer] Other Start: 02-28-2023 Telephone encounter Tomas Ball [facility] Start: 02-27-2023 End: 02-27-2023 ambulatory Tomas Ball Other [employer] Other Start: 02-27-2023 Telephone encounter Tomas Ball [facility] Start: 02-14-2023 End: 02-14-2023 ambulatory Tomas Ball Other [employer] Other Start: 02-14-2023 Telephone encounter Tomas Ball [facility] Start: 01-16-2023 End: 01-16-2023 ambulatory Tomas Ball Other [employer] Other Start: 01-16-2023 Telephone encounter Tomas Ball FP [facility] Start: 01-06-2023 End: 01-06-2023 ambulatory Tomas Ball Other [employer] Other Start: 01-06-2023 Telephone encounter Tomas [facility] Start: 12-29-2022 End: 12-29-2022 ambulatory Tomas Pfeiffer Other [employer] Other Start: 12-29-2022 Telephone encounter Tomas Pfeiffer [facility] Start: 12-16-2022 Telephone encounter Tomas Pfeiffer [facility] Start: 12-16-2022 End: 12-16-2022 ambulatory Tomas Pfeiffer [facility] [employer] Other Start: 12-14-2022 End: 12-14-2022 ambulatory Tomas Pfeiffer Other [employer] Other Start: 12-14-2022 Office outpatient vi sit 15 minutes Tomas Pfeiffer [facility] Start: 11-16-2022 End: 11-16-2022 ambulatory Tomas Pfeiffer Other [employer] Other Start: 11-16-2022 Office outpatient vi sit 15 minutes Tomas Pfeiffer [facility] Start: 11-01-2022 End: 11-01-2022 ambulatory Imad Asaad Other [employer] Other Start: 11-01-2022 Telephone encounter Imad Asaad [facility] Start: 10-18-2022 End: 10-18-2022 ambulatory Tomas Kentrell Other [employer] Other Start: 10-18-2022 Telephone encounter Tomas Kentrell [facility] Start: 08-02-2022 End: 08-03-2022 ambulatory [facility] Facility:[facility] Start: 07-20-2022 End: 07-21-[address] ENZO LEYVA Facility:[facility]1 Start: 03-27-2022 End: 03-28-[address] TOMAS PFEIFFER Facility:[facility] Start: 02-23-2022 End: 03-26-[address] TOMAS PFEIFFER Facility:[facility] Start: 02-19-2022 End: 02-19-2022 ambulatory Aleena Mariola Other [employer] Other Start: 02-19-2022 Office outpatient vi sit 15 minutes Aleena Mariola [facility] [place] Start: 01-03-2022 Encounter for preprocedural laboratory examination [facility] Start: 01-03-2022 End: 01-03-[address] SIN MARCUS Facility:[facility]1 Start: 12-30-2021 End: 12-31-2021 ambulatory [facility] Thao [facility] Facility:[facility] Start: 12-30-2021 End: 12-31-2021 Encounter for preprocedural laboratory examination [facility] Facility:[facility] Start: 12-25-2021 Encounter for other preprocedural examination [facility] Start: 12-22-2021 End: 12-23-2021 ambulatory ISABELL FRASER Facility:H1 Start: 12-22-2021 End: 12-23-2021 Encounter for other preprocedural examination ISABELL FRASER Facility:[facility]1 Start: 10-19-2021 Encounter for genera l adult medical examination without abnormal findings DR TOMAS PFEIFFER [facility] Start: 10-14-2021 End: 10-15-[address] TOMAS PFEIFFER Facility:[facility]1 Start: 09-01-2021 End: 09-02-2021 ambulatory PANTERA BILLINGS Facility:[facility]1 Start: 08-31-2021 End: 08-31-[address] LUCIA HOLLIDAY Facility:[facility]1 Start: 08-28-[address] LUCIA HOLLIDAY Facili ty:H1 Start: 08-24-2021 End: 08-25-[address] SIN MARCUS Facility:[facility]1 Start: 08-19-2021 End: 08-20-[address] LUCIA HOLLIDAY Facility:[facility]1 Plan of Treatment Date Care Activity Detail Author Start: 11-25-2024 Influenza vaccination Influenza Vacc ine (#1) [facility] Start: 10-02-2024 End: 10-02-2024 Patient encounter procedure 10/02/2024 3:30 PM EDT Office Visit [facility] [address] [place] [address] Lucia Holliday MD [address] [facility] [address] [place] [address] Arrived [facility] Comment on above: Arrived Start: 2005 Screening for malign ant neoplasm of breast Mammogram [facility] Start: 10-08-1995 Screening for malign ant neoplasm of cervix [facility] Start: 1986 Screening for malign ant neoplasm of cervix Pap Smear [facility] Start: 1965 Screening for malign ant neoplasm of colon [facility] [place] [place] metabo lic 1999 panel - Serum or Plasma [facility] Comprehensive metabo lic 2000 panel - Serum or Plasma [facility] MG Breast - bilatera l Screening [facility] MG Breast - bilatera l Screening [facility] Immunizations Immunization Date Immunization Notes Care Provider Fa cility 12-22-2023 influenza, seasonal, injectable, preservative free [facility] 12-22-2023 influenza virus vaccine, unspecified formulation Lucia Holliday MD Work Phone: [facility] 02-15-2022 influenza virus vaccine, split virus (incl. purified surface antigen) Tomas Pfeiffer Other [facility] Other 02-15-2022 influenza virus vaccine, unspecified formulation [facility] 12-15-2020 influenza virus vaccine, split virus (incl. purified surface antigen) Tomas Pfeiffer Other [facility] Other 12-15-2020 influenza virus vaccine, unspecified formulation [facility] 01-18-2019 influenza virus vaccine, split virus (incl. purified surface antigen) Tomas Pfeiffer Other [facility] Other 01-18-2019 influenza virus vaccine, unspecified formulation [facility] 12-20-2017 influenza virus vaccine, split virus (incl. purified surface antigen) Tomas Pfeiffer Other [facility] Other 12-20-2017 influenza virus vaccine, unspecified formulation [facility] 08-14-2017 diphtheria, tetanus toxoids and acellular pertussis vaccine, unspecified formulation Tomas Pfeiffer Other [facility] 08-14-2017 tetanus toxoid, reduced diphtheria toxoid, and acellular pertussis vaccine, adsorbed Lucia Holliday MD Work Phone: [facility] 02-09-2017 influenza virus vaccine, split virus (incl. purified surface antigen) Tomas Pfeiffer Other [employer] Other 02-09-2017 influenza virus vaccine, unspecified formulation [facility] 12-22-2015 tetanus and diphtheria toxoids, adsorbed, preservative free, for adult use (5 Lf of tetanus toxoid and 2 Lf of diphtheria toxoid) Tomas Pfeiffer Other [facility] NEGATED: Highlighted row has not occurred!12-25-2019 influenza virus vaccine, split virus (incl. purified surface antigen) Tomas Pfeiffer Other [employer] Other Payers Date Payer Category Payer [facility] [id number] 2024 Unknown [id number] 2022 Self-pay 2022 Unknown [id number] 1965 Unknown [id number] 2.16.840.1.155027.3.579 .2.593 1965 Unknown [id number] 2.16.840.1.932730.3.579 .2.593 1965 Unknown [id number] 2.16.840.1.829927.3.579 .2.593 1965 Unknown [id number] 2.16.840.1.313347.3.579 .2.593 1965 Unknown [id number] 2.16.840.1.202371.3.579 .2.593 1965 Unknown [id number] 2.16.840.1.075060.3.579 .2.593 1965 Unknown [id number] 2.16.840.1.452648.3.579 .2.593 1965 Unknown [id number] 2.16.840.1.235707.3.579 .2.593 1965 Unknown [id number] 2.16.840.1.980816.3.579 .2.593 1965 Unknown [id number] 2.16.840.1.083388.3.579 .2.593 1965 Unknown [id number] 2.16.840.1.357209.3.579 .2.593 1965 Unknown [id number] 2.16.840.1.129614.3.579 .2.593 1965 Unknown [id number] 2.16.840.1.731693.3.579 .2.593 1965 Unknown [id number] 2.16.840.1.034533.3.579 .2.1259 1959 Unknown [id number] 2.16.840.1.357052.19 1959 Unknown [id number] Unknown [id number] 2.16.840.1.997138.3.579 .2.531 Social History Date Type Detail Facility Start: 10-04-2023 Sex Assigned At N [facility] Other Start: 09-22-2022 End: 12-16-2022 Tobacco smoking status NHIS Never smoked tobacco (finding) [facility] Start: 1965 Sex Assigned At Female F [facility] Start: 09-22-2022 Tobacco use and exposure Smokeless tobacco non-user [facility] Start: 10-04-2023 End: 10-02-2024 Alcoholic beverage intake Ex-drinker (finding) [facility] Start: 10-04-2023 History of Social function [facility] Start: 09-21-2022 Gender identity Identifies as female gender (finding) [facility] Sex Female (finding) [facility] Clinical Notes 08-24-2021 to 10-02-2024 Lucia Holliday MD - 10/02/2024 3:30 PM EDT Note Date & Type Note Facility 10-02-2024 History of Presen t illness Narrative Subjective Patient ID: Lisa Campuzano is a 58 y.o. female who presents for Ear Problem (1 year check ) F/U for tube check. Got water in RT ear 2 weeks ago and had severe pain Family History Problem Relation Name Age of Onset Hypertension Mother Manoj Sterling Heart failure Mother Manoj Sterling Diabetes Mother Manoj Sterling Heart failure Father Marvin Ruiz Heart failure Maternal Grandfather Skinny Walter Diabetes Maternal Grandfather Skinny Walter Active Ambulatory Problems Diagnosis Date Noted Dysfunction of both eustachian tubes 09/22/2022 Sensorineural hearing loss, bilateral 09/22/2022 Hypothyroid 09/22/2022 Autoimmune hypothyroidism 10/02/2024 Cervical dysplasia 10/02/2024 Chronic pain 10/02/2024 Chronic sinusitis 10/02/2024 COVID-19 10/02/2024 Disc displacement, lumbar 10/19/2017 Disorder of sacrum 05/31/2017 Encounter by telehealth for suspected COVID-19 10/02/2024 Edema leg 10/02/2024 Depression screen 10/02/2024 Encounter for screening mammogram for malignant neoplasm of breast 10/02/2024 Equinus contracture of ankle 10/02/2024 Exogenous obesity 10/02/2024 Generalized gingivitis 10/02/2024 H/O motion sickness 10/02/2024 Late effect of fracture of lower extremity 10/02/2024 Left ankle instability 10/02/2024 Lumbar spondylosis 10/02/2024 Lumbosacral spondylosis without myelopathy 02/08/2017 Nerve entrapment syndrome of right ankle 10/02/2024 Ankle impingement syndrome 10/02/2024 Pain in right ankle and joints of right foot 10/02/2024 Pain in left foot 10/02/2024 Patellofemoral syndrome of left knee 10/02/2024 PCOD (polycystic ovarian disease) 10/02/2024 Peroneal tendinitis, right leg 10/02/2024 Plantar fascial fibromatosis of left foot 10/02/2024 Primary osteoarthritis, right ankle and foot 10/02/2024 Sprain of anterior talofibular ligament of right ankle 10/02/2024 Strain of muscle(s) and tendon(s) of peroneal muscle group at lower leg level, left leg, sequela 10/02/2024 Stress fracture of metatarsal bone 10/02/2024 Tarsal coalition of right foot 10/02/2024 Resolved Ambulatory Problems Diagnosis Date Noted No Resolved Ambulatory Problems Past Medical History: Diagnosis Date Disease of thyroid gland Ear problems Migraines PCO (polycystic ovaries) Plantar fasciitis of left foot Past Surgical History: Procedure Laterality Date ADENOIDECTOMY 1973 CARPAL TUNNEL RELEASE Bilateral 2003 FASCIOTOMY 03/13/2020 left plantar LUMBAR DISCECTOMY OTHER SURGICAL HISTORY RT foot surgery x 2 TONSILLECTOMY 1973 TOTAL ABDOMINAL HYSTERECTOMY 2004 TYMPANOSTOMY TUBE PLACEMENT 08/31/2021 BMT, Timmis No Known Allergies Current Outpatient Medications on File Prior to Visit Medication Sig Dispense Refill levothyroxine (Synthroid, Levoxyl) 175 MCG tablet Take 75 mcg by mouth 1 (one) time each day at the same time No current facility-administered medications on file prior to visit. Objective Last Recorded Vitals Vitals: 10/02/24 1526 BP: 104/70 Pulse: 68 ENT Physical Exam Constitutional Appearance: patient appears well-nourished, Ear Ear comments: Raphael TIP&P, dry. Mild RT TM inflammation Assessment/Plan Diagnoses and all orders for this visit: Dysfunction of both eustachian tubes Acute myringitis of ear, right - ciprofloxacin-dexAMETHasone (CiproDEX) otic suspension; Administer 4 drops into the right ear in the morning and 4 drops before bedtime. Do all this for 7 days. Tubes look OK, but RT TM a bit inflamed. Tx with ciprodex. F/U one year if doing OK. documented in this encounter [facility] 04-27-2023 Evaluation note Encounter Date Diagnosis Assessment Notes Apr, Autoimmune thyroiditis (ICD-10 - E06.3) [facility] Other 12-05-2023 Evaluation note* Encounter Date Diagnosis Assessment Notes Treatment Notes Treatment Clinical Notes Feb, Autoimmune thyroiditis (ICD-10 - E06.3) [facility] Other 11-21-2023 Evaluation note* Encounter Date Diagnosis Assessment Notes Treatment Notes Treatment Clinical Notes Jan, Other obesity due to excess calories (ICD-10 - E66.09) [facility] Other 10-23-2023 Evaluation note* Encounter Date Diagnosis Assessment Notes Treatment Notes Treatment Clinical Notes Dec, Other obesity due to excess calories (ICD-10 - E66.09) [facility] Other 09-20-2023 Evaluation note* Encounter Date Diagnosis [...] [BMI ] 30.0-30.9, adult (ICD-10 - Z68.30) [facility] Other 08-23-2023 Evaluation note* Encounter Date Diagnosis [...] [BMI ] 30.0-30.9, adult (ICD-10 - Z68.30) [facility] Other 07-25-2023 Evaluation note* Encounter Date Diagnosis Assessment Notes Treatment Notes Treatment Clinical Notes Sep, Autoimmune thyroiditis (ICD-10 - E06.3) Euthyroid. Yearly TSH. [facility] Other 04-27-2023 NotePROCEDURE: XR ANKLE RT MIN [...] Electronically authenticated by: ENZO LEYVA Date: 2022-07-21 07:56[facility]11-26-2022 Evaluation note* Encounter Date Diagnosis Assessment Notes [...] of diseases classified elsewhere (ICD-10 - B96.89) [facility] Other 10-10-2022 NotePROCEDURE: XR ANKLE RT MIN 3 VIEWS COMPARISON: 08/24/2021 HISTORY: Pain FINDINGS: BONES:No acute fracture or dislocation. Minimal enthesopathic spurring plantar calcaneus. SOFT TISSUES:Lateral soft tissue swelling. Subcutaneous emphysema. Lateral surgical skin monse EFFUSION:None visible. OTHER: Posterior splint obscures detail IMPRESSION: Lateral postsurgical changes Electronically authenticated by: SIN MARCUS Date: 2022-01-03 16:07[facility]06-07-2022 NoteOPERATIVE NOTE OPERATION DATE: 08/31/2021 PRIMARY CARE [...] to the recovery room in good condition. [facility] Signed and Approved by: DR LUCIA HOLLIDAY 09/07/2021 10:29:00[facility]05-31-2022 NotePROCEDURE: XR FOOT RT MIN 3 VIEWS, [...] Electronically authenticated by: SIN MARCUS Date: 2021-08-24 16:27[facility]05-31-2022 NotePROCEDURE: XR FOOT RT MIN 3 VIEWS, [...] Electronically authenticated by: SIN MARCUS Date: 2021-08-24 16[facility]27[facility] Other Evaluation note* Diagnosis Onset Date Resolution Status Arthritis of both ankles acu te Hypothyroid acute Screening mammogram for breast cancer noneactive Wellness examination noneact [facility] Work Phone: Evaluation note* Diagnosis Onset Date Resolution Status Arthritis of both ankles acu te Hypothyroid acute Overweight acute Screening mammogram for breast cancer noneactive Wellness examination noneact [facility] Work Phone: Evaluation note* Diagnosis Dysfunction of both eustachian tubes- Primary Acute myringitis of ear, right [facility] Diagnosis Onset Date Resolution Status Admit Date Arthritis of both ankles acute October 28, 2024 2:57pm Hypothyroid acute October 28 025 2:57pm Overweight acute October 28 2:57pm Screening mammogram for breast cancer noneactive October 28, 2024 2:57pm Wellness examination noneactive 2024 2:57pm [facility] Work Phone: History general Narrative - [...] right foot Hospitalization History see surgical hx [facility] Other History general Narrative - Reported* Type [...] 12/14 22 Hospitalization History see surgical hx [facility] Other History general Narrative - Reported* Type [...] years) 11/2022 Hospitalization History see surgical hx [facility] Other Reason for referral (narrative)No reason for referral information [facility] Work Phone: Summary Purpose Family History Relationship Condition Age at Onset Recorded Date/T issa Not Specified Diabetes mellitus Unknown Heart disease Unknown Unknown Hypertension Unknown Advance Directives Advance Directive Response Recorded Date/ Time Advance Directives No November 9:18am Chief Complaint and Reason for Visit Chief Complaint Wellness Reason for Visit Arthritis of both an kles Hypothyroid Screening mammogram for breast cancer Wellness examination Chief Complaint Wellness flu shot Reason for Visit Arthritis of both an kles Hypothyroid Overweight Screening mammogram for breast cancer Wellness examination Chief Complaint Admit Date Wellness October 28, 2024 2:5 7pm Reason for Visit Admit Date Arthritis of both ankles October 28 2:57pm Hypothyroid October 28, 2024 2:5 7pm Overweight October 28, 2024 2:5 7pm Screening mammogram for breast cancer Au yue 2024 2:57pm Wellness examination October 28, 2024 2: 57pm Additional Source Comments REASON FOR VISIT (unrecogniz ed section and content) Reason Comments Ear Problem 1 year check INFORMATION SOURCE (unrecogn ized section and content) DATE CREATED AUTHOR 08/07/2022 [facility] DATE CREATED AUTHOR AUTHOR'S ORGANIZ ATION 12/30/2022 [facility] DATE CREATED AUTHOR AUTHOR'S ORGANIZ ATION 10/06/2024 [facility] [employer] Care Teams (unrecognized sec tion and content) Team Status: Active Member Role Status Dates Tomas Pfeiffer DO Primary Care Provider Active Team Status: Inactive Member Role Status Dates Tomas Pfeiffer DO Primary Care Provide r, Attending Provider Active Start: October 23, 2023 End: October 23, 2023 Team Status: Active Member Role Status Dates Tomas Pfeiffer DO Primary Care Provide r, Attending Provider Active Start: October 24, 2023 Team Status: Inactive Member Role Status Dates Tomas Pfeiffer DO Primary Care Provide r, Attending Provider Active Start: December 22, 2023 End: December 22, 2023 Building Custodian Relationship Specialty Start Date End Date Tomas Pfeiffer DO [address] [place] [address] PCP - General Internal Medicine 09/23/24 Building Custodian Relationship Specialty Start Date End Date Tomas Pfeiffer DO [address] [place] [address] PCP - General Internal Medicine 09/23/24 Team Status: Inactive Member Role Status Dates Tomas Pfeiffer DO Primary Care Provider Active Start: October 28, 2024 End: October 28, 2024 Tomas Pfeiffer DO Attending Provider Active Sta rt: October 28, 2024 End: October 28, 2024 Goals (unrecognized section and content) Goals may [...] BE BASED ON THE PRIMARY CLINICAL RECORDS. [facility] [employer] [facility]. provides no warranty or guarantee of the accuracy or completeness of information in this document.
== END 2024-11-26 15:53 | disposition home or self-care (01) ==
LOC: MAMMO 15:52
PROVIDERS: PCP Internal Medicine; Visit Provider Internal Medicine
DX: Z12.31 Encounter for screening mammogram for malignant neoplasm of breast (principal)
CPT/HCPCS: 77063; 77067